=== PATIENT | male | born 1945 | race Caucasian/White ===

== ENCOUNTER → 2017-08-29 15:33 | Outpatient (CLI) | payer MEDICARE, OTHER, SELFPAY ==
[2017-08-29 16:09] LABS: Absolute Lymphocyte Count 1.63 X10^3/ul (0.83-4.51); Absolute Neutrophil Count 3.5 X10^3/uL (2.0-7.7); Basophil# 0.01 X10^3/uL; Basophil% 0.2 % (0-1); Eosinophil# 0.04 X10^3/uL; Eosinophils% 0.7 % (0-5); Hematocrit 43.5 % (40-54); Hemoglobin 14.8 g/dl (13.0-16.5); Lymphocyte # 1.63 X10^3/ul (4.0); Lymphocyte % 28.8 % (19-41); Mean Corpuscular Hgb 32.5 pg (27.0-32.0); Mean Corpuscular Volume 95.4 fL (80-94); Mean Platelet Vol. 9.2 fl (6.2-12.0); Monocyte# 0.51 X10^3/uL; Neutrophil # 3.47 X10^3/uL (2.7-7.7); Neutrophil % 61.3 % (47-70); Platelet Count 151 K/mm3 (150-450); RBC Distribution Width CV 12.2 % (11.6-14.6); RBC Distribution Width SD 42.5 fl (35.1-43.9); Red Blood Count 4.56 M/mm3 (4.6-6.2); White Blood Count 5.7 K/mm3 (4.4-11.0)
[2017-08-29 16:12] LABS: POSITIVE COUNT NO; POSITIVE DIFFERENTIAL NO; POSITIVE MORPHOLOGY NO
[2017-08-29 16:24] LABS: Erythrocyte Sedimentation Rate 13 mm/hr (0-20)
[2017-08-29 16:42] LABS: D-Dimer Quantitative (DVT/PE) 0.62 FEU/ug/m (0.27-0.49)
[2017-08-29 16:57] LABS: ALB/GLOB Ratio 1.2 RATIO (0.9-2.4); AST(SGOT) 26 U/L (15-37); Alanine Aminotransfer ALT/SGPT 36 U/L (16-61); Albumin, Serum 3.7 g/dL (3.2-5.0); Alkaline Phosphatase 97 U/L (45-117); Anion Gap 8 (5-15); BUN 11 mg/dL (7-18); BUN/Creat Ratio 12.6 RATIO (10-20); Calcium,Total 8.9 mg/dL (8.5-10.1); Chloride 101 mmol/L (98-107); Creatinine, Serum 0.87 mg/dL (0.70-1.30); EST Glomerular Filtration Rate 92 mL/min (>60); Est Glom Filt Rate - Afr Amer 111 mL/min (>60); Globulin 3.2 g/dL (2.2-4.2); Glucose 86 mg/dL (74-106); Potassium 4.2 mmol/L (3.5-5.1); Protein, Total 6.9 g/dL (6.4-8.2); Sodium Level 136 mmol/L (136-145)
[2017-09-01 12:56] LABS: EBV Acute VCA IgM < 36.0 U/mL (0.0-35.9); EBV Early Antigen IgG >150.0 U/mL (0.0-8.9)
== END ==
PROVIDERS: Family Provider Internal Medicine; PCP Internal Medicine; Visit Provider Internal Medicine
DX: R53.83 Other fatigue (principal); R07.9 Chest pain, unspecified
CPT/HCPCS: 80053; 84484; 85025; 85379; 85652; 86663; 86664; 86665

== ENCOUNTER → 2017-08-29 15:49 | Outpatient (CLI) | payer MEDICARE, OTHER, SELFPAY ==
--- NOTE | 2017-08-29 15:52 | RAD_ITS ---
STUDY: X-RAY CHEST REASON FOR EXAM: Male, 72 years old. COUGH TECHNIQUE: Frontal and lateral views of the chest. COMPARISON: None. FINDINGS: Chronic appearing increased interstitial lung markings. There is an elevated right hemidiaphragm. The lung vaca are hyperexpanded. There is no demonstrated pleural abnormality. Normal heart size. Normal mediastinum and art. Normal visualized pulmonary arteries. There is atherosclerotic calcification of the aortic arch with tortuosity. There are diffuse degenerative changes of the visualized thoracic spine. There is degenerative osteoarthritis of the bilateral shoulders. There is no demonstrated abnormality of the visualized soft tissue structures of the upper abdomen. RAD/Chest PA and Lateral IMPRESSION: There are no acute findings. Electronically Signed: Kevin Jenkins MD at 16:22 EST , Service support ,
== END ==
PROVIDERS: Family Provider Internal Medicine; PCP Internal Medicine; Visit Provider Internal Medicine
DX: J45.31 Mild persistent asthma with (acute) exacerbation (principal); R53.83 Other fatigue; R07.9 Chest pain, unspecified
CPT/HCPCS: 71046; 80053; 84484; 85025; 85379; 85652; 86663; 86664; 86665

== ENCOUNTER → 2017-08-30 08:37 | Outpatient (CLI) | payer MEDICARE, OTHER, SELFPAY ==
--- NOTE | 2017-08-30 09:07 | CT_ITS ---
STUDY: CTA CHEST REASON FOR EXAM: Male, 72 years old. Elevated d-dimer. RADIATION DOSAGE (If Supplied By Facility): CTDIvol = ( 15.39 ) mGy, DLP = ( 668.35 ) mGycm TECHNIQUE: The examination was performed with the intravenous administration of 100 ml of Isovue 370 contrast material. Post-processing of the angiographic images was performed, with multiplanar reformation and 3D reconstruction. Individualized dose optimization techniques were used for this CT. COMPARISON: CT of the chest dated March 29, 2017. FINDINGS: Normal enhancement of the main pulmonary artery and right and left pulmonary arteries. Normal enhancement of the bilateral peripheral pulmonary arteries. There is no demonstrated pulmonary embolism. There is atherosclerotic calcification of the aortic arch with tortuosity. Maximum transverse dimension of ascending thoracic aorta measures approximately 4.3 cm. This is similar to the previous CT. There is no demonstrated aortic dissection. Normal heart and pericardium. There are calcifications of the coronary arteries. There are visualized mediastinal lymph nodes, which are within normal size limits, and with normal morphology. Normal hilar regions. Normal visualized trachea and bronchi. The lungs are hyper expanded, with flattening of the hemidiaphragms. There is patchy right basilar airspace consolidation, possibly representing pneumonia. A similar appearance was present on the previous CT and this could represent pulmonary fibrosis. There is a nodule left lower lobe best seen on axial image #58 measuring approximately 7.6 mm in size. There curvilinear opacities within the left lower lobe that may represent pulmonary fibrosis. There may be some bronchiectasis in the left lower lobe. There is a calcified right apical pulmonary nodule possibly representing granuloma. There appears to be mild pleural thickening adjacent to the posterior chest gomez. Normal chest wall structures. There are degenerative changes of thoracic spine. There is a small lucency within the dome of the right lobe liver that may represent a small cyst. CT/CTA Chest W/WO Contrast IMPRESSION: 1. No CTA demonstrated pulmonary embolism or arterial dissection. 2. Chronic right basilar opacity possibly presenting pulmonary fibrosis or pleural thickening. 3. Questionable left lower lobe pulmonary nodule and bronchiectasis. 4. Electronically Signed: Carissa Garcia MD at 10:00 EST , Service support ,
== END ==
PROVIDERS: Family Provider Internal Medicine; PCP Internal Medicine; Visit Provider Internal Medicine
DX: R79.89 Other specified abnormal findings of blood chemistry (principal)
CPT/HCPCS: 71275; Q9967

== ENCOUNTER 2017-12-21 16:04 | Observation (INO) | payer MEDICARE, OTHER, SELFPAY ==
--- NOTE | 2017-12-21 13:03 | EKG12_ITS ---
Test Reason : AM EKG Blood Pressure : / mmHG Vent. Rate : 053 BPM Atrial Rate : 053 BPM P-R Int : 184 ms QRS Dur : 088 ms QT Int : 438 ms P-R-T Axes : 042 012 035 degrees QTc Int : 410 ms Sinus bradycardia Otherwise normal ECG Confirmed by HARMAN CARTAGENA, DANITA ([id number]), photographic editor NOREEN MEDINA ([id number] on 12/27/2017 1:48:16 PM Referred By: Confirmed By:DANITA HAMMER MD
--- NOTE | 2017-12-21 15:19 | EKG12_ITS ---
Test Reason : CP Blood Pressure : / mmHG Vent. Rate : 069 BPM Atrial Rate : 069 BPM P-R Int : 162 ms QRS Dur : 088 ms QT Int : 378 ms P-R-T Axes : 049 -14 033 degrees QTc Int : 405 ms Normal sinus rhythm Normal ECG When compared with ECG of 21-MAY-2011 09:48, No significant change was found Confirmed by NATHALIA VACA ([id number]), design editor JENNIFER PETTY ([id number] on 01/06/2018 2:59:15 PM Referred By: ISAI Confirmed By:NATHALIA VACA
--- NOTE | 2017-12-21 15:49 | RAD_ITS ---
STUDY: X-RAY CHEST REASON FOR EXAM: Male, 72 years old. Chest pain TECHNIQUE: PA and lateral views of the chest. COMPARISON: None. FINDINGS: The lungs are clear and expanded. There is no demonstrated pleural abnormality. There is mild cardiac enlargement. Normal mediastinum and art. Normal visualized pulmonary arteries. Normal visualized aortic arch and descending thoracic aorta. There are diffuse degenerative changes of the visualized thoracic spine. There is degenerative osteoarthritis of the bilateral shoulders. There is no demonstrated abnormality of the visualized soft tissue structures of the upper abdomen. RAD/Chest PA and Lateral IMPRESSION: No acute cardiopulmonary disease Electronically Signed: Pranav Gibbons DO at 16:00 EDT Tel , Service support ,
--- NOTE | 2017-12-21 17:28 | DT_ITS ---
This patient was seen during an EMR downtime December 16, 2017 - December 23, 2017. This patient may have a combination of paper and electronic documentation or all paper documentation. All documentation is viewable within the e-chart portion of [facility] for each patient visit.
--- NOTE | 2017-12-21 18:46 | EKG12_ITS ---
Test Reason : ADMIT Blood Pressure : / mmHG Vent. Rate : 040 BPM Atrial Rate : 040 BPM P-R Int : 166 ms QRS Dur : 098 ms QT Int : 444 ms P-R-T Axes : 029 -18 013 degrees QTc Int : 361 ms Marked sinus bradycardia Abnormal ECG Confirmed by HARMAN CARTAGENA, DANITA ([id number]), deputy editor in chief NOREEN MEDINA ([id number] on 12/27/2017 2:57:46 PM Referred By: Confirmed By:DANITA HAMMER MD
[2017-12-24 20:31] LABS: BUN 13 mg/dL (7-18); BUN/Creat Ratio 11.9 RATIO (10-20); Calcium,Total 8.8 mg/dL (8.5-10.1); Creatinine, Serum 1.09 mg/dL (0.70-1.30); EST Glomerular Filtration Rate 71 mL/min (>60); Est Glom Filt Rate - Afr Amer 86 mL/min (>60); Glucose 105 mg/dL (74-106)
[2017-12-24 20:32] LABS: Anion Gap 8 (5-15); Chloride 105 mmol/L (98-107); Potassium 4.2 mmol/L (3.5-5.1); Sodium Level 141 mmol/L (136-145)
[2017-12-24 21:00] LABS: Absolute Lymphocyte Count 1.46 X10^3/ul (0.83-4.51); Absolute Neutrophil Count 3.7 X10^3/uL (2.0-7.7); Basophil% 0.3 % (0-1); Eosinophils% 2.3 % (0-5); Hematocrit 46.1 % (40-54); Hemoglobin 15.9 g/dl (13.0-16.5); Lymphocyte # 1.46 X10^3/ul (4.0); Lymphocyte % 25.4 % (19-41); Mean Corp Hgb Conc 34.5 g/gl (32-36); Mean Corpuscular Hgb 33.1 pg (27.0-32.0); Mean Corpuscular Volume 95.8 fL (80-94); Mean Platelet Vol. 9.2 fl (6.2-12.0); Monocyte# 0.39 X10^3/uL; Monocyte% 6.8 % (0-10); Neutrophil # 3.74 X10^3/uL (2.7-7.7); Neutrophil % 65.2 % (47-70); POSITIVE COUNT NO; POSITIVE DIFFERENTIAL NO; POSITIVE MORPHOLOGY NO; Platelet Count 186 K/mm3 (150-450); RBC Distribution Width CV 12.4 % (11.6-14.6); RBC Distribution Width SD 43.4 fl (35.1-43.9); Red Blood Count 4.81 M/mm3 (4.6-6.2); White Blood Count 5.7 K/mm3 (4.4-11.0)
[2017-12-24 21:01] LABS: Basophil# 0.02 X10^3/uL; Eosinophil# 0.13 X10^3/uL
== END 2017-12-22 09:50 | disposition home or self-care (01) ==
LOC: ED 12-22 09:52 → PCU 12-22 09:53
PROVIDERS: Admitting Provider Internal Medicine; Emergency Provider Emergency Medicine; Family Provider Internal Medicine; PCP Internal Medicine; Visit Provider Internal Medicine
DX: R07.89 Other chest pain (principal); I10 Essential (primary) hypertension; E78.5 Hyperlipidemia, unspecified; J45.909 Unspecified asthma, uncomplicated; G47.33 Obstructive sleep apnea (adult) (pediatric); R00.1 Bradycardia, unspecified
CPT/HCPCS: 71046; 80048; 84484; 85025; 93005; 99218; 99284; A4216; G0378

== ENCOUNTER → 2017-12-30 12:41 | Outpatient (CLI) | payer MEDICARE, OTHER, SELFPAY ==
[2017-12-30 13:27] LABS: D-Dimer Quantitative (DVT/PE) 0.64 FEU/ug/m (0.27-0.49)
== END ==
PROVIDERS: Family Provider Internal Medicine; PCP Internal Medicine; Visit Provider Internal Medicine
DX: R07.89 Other chest pain (principal)
CPT/HCPCS: 85379

== ENCOUNTER → 2017-12-30 13:55 | Outpatient (CLI) | payer MEDICARE, OTHER, SELFPAY ==
--- NOTE | 2017-12-30 14:14 | CT_ITS ---
STUDY: CTA CHEST REASON FOR EXAM: Male, 72 years old. Elevated d-dimer. Chest pain and shortness of breath. History of recent travel. RADIATION DOSAGE (If Supplied By Facility): CTDIvol = ( 12.60 ) mGy, DLP = ( 553.24 ) mGycm TECHNIQUE: The examination was performed with the intravenous administration of 100mL ml of Isovue 370 contrast material. Post-processing of the angiographic images was performed, with multiplanar reformation and 3D reconstruction. Individualized dose optimization techniques were used for this CT. COMPARISON: Comparison is made with prior study dated August 30, 2017. FINDINGS: Normal enhancement of the main pulmonary artery and right and left pulmonary arteries. Normal enhancement of the bilateral peripheral pulmonary arteries. There is no demonstrated pulmonary embolism. Normal thoracic aorta and visualized great vessels. There is no demonstrated aortic dissection. Normal heart and pericardium. Normal mediastinum. Normal hilar regions. Normal visualized trachea and bronchi. The lungs are well expanded. Mild increased markings at the lung bases suggestive of atelectasis. Scattered calcified granulomas. Normal pleura. Normal chest wall structures. There are degenerative changes of thoracic spine. Normal visualized upper abdomen. CT/CTA Chest W/WO Contrast IMPRESSION: No evidence of pulmonary embolism. Increased markings at the lung bases suggest cerebral atelectasis. There has been essentially no change. Electronically Signed: Castillo Coleman MD at 15:36 EDT Tel [phone], Service support ,
== END ==
PROVIDERS: Family Provider Internal Medicine; PCP Internal Medicine; Visit Provider Internal Medicine
DX: R79.89 Other specified abnormal findings of blood chemistry (principal); R07.89 Other chest pain
CPT/HCPCS: 71275; 85379; Q9967

== ENCOUNTER 2018-02-10 11:00 | Outpatient (RCR) | payer MEDICARE, OTHER, SELFPAY ==
--- NOTE | 2018-01-22 15:46 | HP.PTEVAL_ITS ---
Patient's Visit Information LILLIE JEWELL Jr. is a 72 year old M referred to Physical Therapy by Brooks Moore with a diagnosis of Left Achilles Tendonitis. Date of Evaluation: 01/22/18 Physical Therapist: Nery Fisher - Visit Plan Frequency: 2x /Week Duration: 4 Weeks Plan: Focus on stretching and eccentric strength- modality of US and DN - Subjective Subjective: Left achilles tendon has been bothering him for a couple of months- saw MD who sent him to to Dr. Moore- who told him it was prob fraying or tendonitis. Has been using voltaran gel and a night splint. He really enjoys walking with his in the evening- has tried ice and nothing seems to be helping. When he wakes in the AM his first few steps its pretty miserable and then it gets better as the day goes on. Worst: 4/10 feels obnixious- sharp/ shooting or stabbing depending on it. Agg: first thing in the AM, and being up/ down the stairs Eases: stretching and Voltaran gel. Pain is located into the achilles with no radiating pain. No N/T or burning. Gets stiff when he sits for longer periods of time. Sleep: not disturbed- back sleeper. CPAP for about a year and a half. Does not wear orthotics normally but does wear heel lifts in both shoes. Patient is normally in tennis shoes- and wears dress shoes 3-4 x a month for meetings. Patient reports that he is very active but wants to get back to walking more with his . Normally walks on the sidwalk/ roadway- varys different sides of the road/sidewalk. Has had backpain after he painted his house and has had issues on/off since then. Does his back exercises and they keep them at bay. Dr. Moore did 3 x-rays but did not do an MRI. PMHx:htn Meds: asprin, blood pressure med, cholesterol, spirona. 80s tore/repair the right achillles - Objective Posture: FH, RS. Gait: antalgic- decreased stance bilateral with right toes turned outwards- decreased heel/toe pattern. HR/TR: able with weight shift to the left. SLS: 2 sec then LOB and righted with UE A. Palpation: tender along achilles tendon with increased bump'. ROM: DF: neutral, pf: 60 degrees, Inv: 40 degrees, Ever: 30 degrees. Strength: 5/5 throughout. Flex: Gastroc: severe. Soleus: mild, HS: severe - Goals Goal 1:: Patinet will be I with HEP and progression Goal Time Frame: 4-6 Weeks Goal 2:: Patient will demo 5 degrees of DF Goal Time Frame: 4-6 Weeks Goal 3:: Patient will report 0/10 pain for 1 week Goal Time Frame: 4-6 Weeks Goal 4:: Patient will ambulate without pain Goal Time Frame: 4-6 Weeks - Rehabilitation Potential Physical Therapy Diagnosis: Patient presents with hypmobility- he has decreased rom and flex leading increased pain with ADL's. Rehabilitation Potential: Fair - Anticipated Interventions Patient/Client Instruction: Educate patient on: Benefits of Fitness Program For the Purpose of:: To improve ability to perform ADL's Therapeutic Exercise to Include: Strength training, Endurance training, Balance training, Agility training, Body mechanics, Postural training, Flexibilty training, Gait and locomotor training, Passive ROM, Active ROM For the Purpose of:: To improve muscle performance and motor function Manual Therapy Techniques to Include: Mobilization, Functional dry needling, Soft tissue mobilization For the Purpose of:: To increase oxygenation perfusion TENS: Yes Cryotherapy (ice pack, ice massage): Yes Thermo therapy (hot pack): Yes Ultrasound (thermal/non thermal): Yes For the Purpose of:: To decrease pain Thank you for the opportunity to evaluate your patient. For Medicare and Medicare HMO plans, please review the plan of care and approve it. It will need to be FAXED BACK to us at [phone] for Medicare purposes. Please let me know if there are questions or concerns regarding this plan of care. Physician Signature: Date:
--- NOTE | 2018-02-10 11:21 | HP.PTDCSUM ---
HP - PT D/C Summary It has been my pleasure to treat LILLIE JEWELL . under orders from Brooks Moore, for the diagnosis of Left Achilles Tendonitis for a total of 8 visit(s). Discharge Date: Please see the following information for a summary of their discharge status. - Subjective Subjective: Patient reports he was feeling great- no pain until last week and [employer] used a international controller on him and he has taken out a heel lift per Dr. Moore and now he is having more pain. He is doing the exercises at home stretching but feels like the calf is almost cramping. - Pain left achilles Pain Intensity (Out of 10): 0 - Overall Improvement % Improvement: 90 - Objective Objective/Function: Posture: FH, RS. Gait: antalgic- decreased stance bilateral with right toes turned outwards- decreased heel/toe pattern. HR/TR: able with weight shift to the left. SLS: 20 sec. Palpation: tender along achilles tendon with increased bump'. ROM: DF: 10, pf: 60 degrees, Inv: 40 degrees, Ever: 30 degrees. Strength: 5/5 throughout. Flex: Gastroc: od. Soleus: mild, HS: mod - Goals Goal 1:: Patinet will be I with HEP and progression Goal Progress: Goal Met Goal 2:: Patient will demo 5 degrees of DF Goal Progress: Goal Met Goal 3:: Patient will report 0/10 pain for 1 week Goal Progress: Progressing Goal 4:: Patient will ambulate without pain Goal Progress: Progressing - Plan Plan: Discharge to I HEP - D/C Information If there are questions or concerns regarding this patient's physical therapy, please feel free to call me at [phone]. Thank you for the referral of this patient. Sincerely, Nery Fisher
== END 2018-02-10 19:00 | disposition home or self-care (01) ==
LOC: PT 11:00
PROVIDERS: Family Provider Internal Medicine; PCP Internal Medicine; Visit Provider Podiatrist
DX: M76.62 Achilles tendinitis, left leg (principal)
CPT/HCPCS: 97035; 97110; 97161; 97164

== ENCOUNTER → 2018-02-27 12:43 | Outpatient (CLI) | payer MEDICARE, OTHER, SELFPAY | PROVIDERS: Family Provider Internal Medicine; PCP Internal Medicine; Visit Provider Internal Medicine Pulmonary Disease | DX: R91.1 Solitary pulmonary nodule (principal) | CPT/HCPCS: 71250 ==

== ENCOUNTER → 2018-05-22 06:59 | Outpatient (CLI) | payer MEDICARE, OTHER, SELFPAY ==
--- NOTE | 2018-05-22 07:02 | ECHOD_ITS ---
Reason For Study: CHEST PAIN Procedure This was a 2D Doppler, Color Flow transthoracic echocardiogram. The exam was of adequate technical quality. Exam performed in department. Left Ventricle Normal LV size. Left ventricular systolic function is normal. The estimated ejection fraction is 60 %. The global longitudinal strain = -20 % (normal). No regional wall motion abnormalities noted. Right Ventricle Normal RV size. Normal systolic function. Atria Normal left atrium. Normal right atrium. No doppler evidence for ASD. Bubble contrast study negative for right to left interatrial shunt. Mitral Valve There is no mitral annular calcification. Mild mitral valve prolapse. Mild (1+) mitral valve insufficiency. Tricuspid Valve Normal tricuspid valve. Mild tricuspid valve insufficiency. Right ventricular systolic pressure estimated to be 27 mmHg. Aortic Valve Trisinus/trileaflet aortic valve. Mild diffuse aortic valve thickening. Pulmonic Valve The pulmonic valve is not well visualized. Mild (1+) pulmonic valve insufficiency. Great Vessels Borderline enlarged aortic root. Pericardium/Pleural No pericardial effusion. Medication Performed a rapid injection of agitated mix of 9 cc saline and 1cc air to assess for atrial septal defect. MMode/2D Measurements & Calculations LVIDd: 5.4 cm IVSd: 1.2 cm Ao root diam: 3.8 cm LVIDs: 3.4 cm LVPWd: 1.0 cm FS: 36.5 % LAV(MOD-bp): 66.7 ml LA A4 area: 18.1 cm2 LA dimension(2D): 4.1 cm LAV(MOD-bp) Indexed: 32.0 ml/m2 LAV(MOD-sp2): 74.7 ml LAV(MOD-sp4): 52.6 ml RA A4 area: 18.3 cm2 Time Measurements MV dec time: 0.24 sec Doppler Measurements & Calculations MV E max renny: 71.0 cm/sec Lat Peak E' Renny: 6.9 cm/sec Med Peak E' Renny: 6.5 cm/sec MV A max renny: 62.4 cm/sec E/E' lat: 10.3 E/E' med: 10.9 MV E/A: 1.1 Ao V2 max: 130.6 cm/sec LV V1 max: 86.4 cm/sec PA V2 max: 92.7 cm/sec Ao max P.8 mmHg LV V1 max P.0 mmHg PI end-d renny: 111.2 cm/sec TR max renny: 245.8 cm/sec PI dec slope: 134.8 cm/sec2 TR max P.2 mmHg Interpretation Summary Left ventricular systolic function is normal. The estimated ejection fraction is 60 %. The global longitudinal strain = -20 % (normal). Mild mitral valve prolapse. Mild (1+) mitral valve insufficiency. Mild tricuspid valve insufficiency. Mild diffuse aortic valve thickening. Mild (1+) pulmonic valve insufficiency. Borderline enlarged aortic root. Right ventricular systolic pressure estimated to be 27 mmHg. Transmitral diastolic flow velocities suggest diastolic dysfunction (pseudonormal pattern). Bubble contrast study negative for right to left interatrial shunt. Ordering Physician: Carlos Anderson Referring Physician: Love Valencia Performed By: Funmilayo Bess, ESE, RVT
--- NOTE | 2018-05-22 10:03 | STRESSREP ---
Stress Test Report Date: 05/22/2018 Procedure: Exercise tolerance test/imaging study Indications: Chest pain Consent: Per the patient Procedure: The patient exercised on a Joseluis protocol for 11 minutes completing Stage III and 2 minutes of Stage IV achieving a peak heart rate of 141 bpm (94 % predicted maximal heart rate) with a peak blood pressure 172/94 mmHg and a peak MET capacity of 13 METs. The baseline ECG demonstrated on his bradycardia. The peak exercise ECG demonstrated somatic/motion artifact with no obvious ECG changes. There was an occasional PAC during exercise. The functional capacity was considered good. There was [no complaint of chest discomfort during exercise or recovery]. The examination was discontinued secondary to dyspnea. Impression: 1. Technically adequate (percent predicted maximal heart rate greater than 85%) exercise tolerance test 2. Peak exercise ECG with somatic/motion artifact with no obvious ECG changes 3. Was an occasional PVC during exercise 4. Nuclear images pending Myocardial perfusion imaging study: Technique: The patient was injected with 11.8 mCi of technetium 99m Cardiolite and subsequently rest SPECT Cardiolite nuclear imaging was obtained in the horizontal long, vertical long, and short axis views. The patient exercised on a Joseluis protocol for 11 minutes completing Stage III and 2 minutes of Stage IV achieving a peak heart rate of 141 bpm (94 % predicted maximal heart rate) with a peak blood pressure 172/94 mmHg and a peak MET capacity of 13 METs. The patient was injected with 33.1 mCi of technetium 99m Cardiolite and subsequently stress SPECT Cardiolite nuclear imaging was obtained in the horizontal long, vertical long, and short axis views. A gated Cardiolite study at peak stress was obtained. Interpretation: Rest and stress SPECT Cardiolite nuclear imaging status post realignment, normalization, and attenuation correction, demonstrates [the appearance of relative uniform tracer uptake and myocardial perfusion appearing within normal limits]. [There is end systolic thickening and brightening]. The gated Cardiolite study demonstrates [myocardial thickening and inward wall motion]. The reported LVEF is 60 %. Impression: 1. Rest and stress SPECT Cardiolite nuclear imaging demonstrate [relative uniform tracer uptake and myocardial perfusion appearing within normal limits]. 2. The gated Cardiolite study reports an LVEF of 60 o%. This note was generated with [employer] software. It may contain incorrect words, spelling, and punctuation that were not noted in checking the note before signing.
--- NOTE | 2018-05-22 10:07 | STRESSREP_ITS ---
Stress Test Report Date: 05/22/2018 Procedure: Exercise tolerance test/imaging study Indications: Chest pain Consent: Per the patient Procedure: The patient exercised on a Joseluis protocol for 11 minutes completing Stage III and 2 minutes of Stage IV achieving a peak heart rate of 141 bpm (94 % predicted maximal heart rate) with a peak blood pressure 172/94 mmHg and a peak MET capacity of 13 METs. The baseline ECG demonstrated on his bradycardia. The peak exercise ECG demonstrated somatic/motion artifact with no obvious ECG changes. There was an occasional PAC during exercise. The functional capacity was considered good. There was [no complaint of chest discomfort during exercise or recovery]. The examination was discontinued secondary to dyspnea. Impression: 1. Technically adequate (percent predicted maximal heart rate greater than 85%) exercise tolerance test 2. Peak exercise ECG with somatic/motion artifact with no obvious ECG changes 3. Was an occasional PVC during exercise 4. Nuclear images pending Myocardial perfusion imaging study: Technique: The patient was injected with 11.8 mCi of technetium 99m Cardiolite and sub sequently rest SPECT Cardiolite nuclear imaging was obtained in the horizontal long, vertical long, and short axis views. The patient exercised on a Joseluis protocol for 11 minutes completing Stage III and 2 minutes of Stage IV achieving a peak heart rate of 141 bpm (94 % predicted maximal heart rate) with a peak blood pressure 172/94 mmHg and a peak MET capacity of 13 METs. The patient was injected with 33.1 mCi of technetium 99m Cardiolite and subsequently stress SPECT Cardiolite nuclear imaging was obtained in the horizontal long, vertical long, and short axis views. A gated Cardiolite study at peak stress was obtained. Interpretation: Rest and stress SPECT Cardiolite nuclear imaging status post realignment, normalization, and attenuation correction, demonstrates [the appearance of rel ative uniform tracer uptake and myocardial perfusion appearing within normal limits]. [There is end systolic thickening and brightening]. The gated Cardiolite study demonstrates [myocardial thickening and inward wall motion]. The reported LVEF is 60 %. Impression: 1. Rest and stress SPECT Cardiolite nuclear imaging demonstrate [relative uniform tracer uptake and myocardial perfusion appearing within normal limits]. 2. The gated Cardiolite study reports an LVEF of 60 o%. This note was generated with [employer] software. It may contain incorrect words, spelling, and punctuation that were not noted in checking the note before signing.
== END ==
PROVIDERS: Family Provider Internal Medicine; PCP Internal Medicine; Referring Provider Internal Medicine Cardiovascular Disease; Visit Provider Internal Medicine Cardiovascular Disease
DX: I25.10 Atherosclerotic heart disease of native coronary artery without angina pectoris (principal); I71.2 Thoracic aortic aneurysm, without rupture; R07.9 Chest pain, unspecified; R06.09 Other forms of dyspnea
CPT/HCPCS: 78452; 93017; 93306; A9500; A4216

== ENCOUNTER → 2018-11-26 | Outpatient (CLI) | payer MEDICARE, OTHER, SELFPAY | END | disposition home or self-care (01) | LOC: PSN 09:01 | PROVIDERS: Family Provider Internal Medicine; PCP Internal Medicine; Referring Provider Internal Medicine; Visit Provider Internal Medicine | DX: R00.1 Bradycardia, unspecified (principal) | CPT/HCPCS: 93225; 93226 ==

== ENCOUNTER → 2018-12-22 | Outpatient (CLI) | payer SELFPAY ==
[2018-04-30 13:08] VITALS: BMI 30.2
--- NOTE | 2018-12-22 14:39 | CT_ITS ---
STUDY: CARDIAC CALCIUM SCORING - CT CHEST REASON FOR EXAM: Male, 73 years old. Hyperlipidemia calcium score evaluation RADIATION DOSAGE (If Supplied By Facility): CTDIvol = ( 12.19 ) mGy, DLP = ( 243.79 ) mGycm TECHNIQUE: Axial non-enhanced images were acquired through the heart for the sole purpose of measuring coronary artery calcium. Individualized dose optimization techniques were used for this CT. COMPARISON: [address] chest FINDINGS: Visualized surrounding anatomy: There is minor atelectasis. Visualized airways are patent. There is no pulmonary edema or pleural effusions. Cardiac chambers are normal in size and shape. There is a linear focus of fat in the subendocardium of the basal lateral left ventricular wall. There is an elongated intracavitary near apical focus of fat in the right ventricle, possibly within trabeculation. There are minor aortic valve calcifications. Calcium Score: 880 CT/Limited Chest CT w/CCTA IMPRESSION: 1. Calcium Score of 880, 75th percentile, moderately elevated future risk of adverse cardiovascular events estimated at greater than 15% over the next 10 years. 2. Left ventricular lateral wall lipoid metaplasia, presumably remote subendocardial infarct. Cardiology referral advised. Please go to: [email or web address] , for a description of the calculator. Electronically Signed: Eduardo Aguirre, at 16:47 EDT Tel , Service support ,
[2018-12-22 15:15] VITALS: BP 133/72; PULSE 56; RESP 16; O2SAT 96; BMI 28.8
--- NOTE | 2018-12-22 18:53 | CA.SCORE ---
Calcium Scoring Date of Study:: 12/22/18 Coronary Calcium Scoring: High-resolution Computed Tomographic imaging of the chest was performed on [12/22/2018], with particular attention paid to the coronary arteries. Images from the examination were analyzed for the presence and extent of coronary artery calcification , using coronary calcium quantification software. The patient tolerated the procedure well and there were no complications. The results of the coronary calcification analysis are provided below. - Findings Left Main (LM): 165 Left Anterior Descending (LAD): 513 Left Circumflex (LCX): 0 Right Coronary Artery (RCA): 202 Total Agatston Score: 880 Percentile Rankin - Conclusion Calcium Scoring Interpretation: Calcium Score Interpretation 0 No identifiable atherosclerotic plaque. Very low cardiovascular disease risk. <5% chance of presence coronary artery disease A Negative Examination 1-10 Minimal Plaque burden. Significant coronary artery disease very unlikely. 11-100 Mild plaque burden. Likely mild or minimal coronary atherosclerosis. 101-400 Moderate plaque burden Moderate non-obstructive coronary artery disease highly likely. Over 400 Extensive plaque burden. High likelihood of at least one significant coronary stenosis (>50% diameter) Calcium Score: >400 High likelihood of at least one significant coronary stenosis - The above suggests a high likelihood that one coronary artery has at least 50% stenosis in diameter. A full evaluation of cardiac risk should include assessment of all conventional risk factors.
== END | disposition home or self-care (01) ==
PROVIDERS: Family Provider Internal Medicine; PCP Internal Medicine; Referring Provider Internal Medicine; Visit Provider Internal Medicine
DX: E78.5 Hyperlipidemia, unspecified (principal)
CPT/HCPCS: 75571; 76380

== ENCOUNTER → 2019-02-17 | Outpatient (CLI) | payer MEDICARE, OTHER, SELFPAY ==
[2019-02-12 13:38] VITALS: BMI 29.2
--- NOTE | 2019-02-17 13:29 | STRESSREP ---
Stress Test Report Date: 02-17-19 Procedure: Exercise tolerance test Indications: Abnormal coronary calcium score; CAD Consent: Per the patient Procedure: The patient exercised on a Joseluis protocol for 10 minutes and 30 seconds completing Stage III and 1 minute and 30 seconds of Stage IV achieving a peak heart rate of 148 bpm (99 % predicted maximal heart rate) with a peak blood pressure 164/70 mmHg and a peak MET capacity of approximately 12 MET's. The baseline ECG demonstrated sinus bradycardia. The peak exercise ECG demonstrated somatic/motion artifact with no obvious ECG changes. There was a rare PVC during exercise and recovery and an isolated ventricular couplet during recovery. The functional capacity was considered good. The patient had no complaint of chest discomfort during exercise or recovery. The examination was discontinued secondary to dyspnea. Impression: 1. Technically adequate (percent predicted maximal heart rate greater than 85%) exercise tolerance test 2. Peak exercise ECG with somatic/motion artifact with no obvious ECG changes 3. There was a rare PVC during exercise and recovery and an isolated ventricular couplet during recovery 4. Good functional capacity This note was generated with [employer] software. It may contain incorrect words, spelling, and punctuation that were not noted in checking the note before signing.
== END | disposition home or self-care (01) ==
LOC: CVS 11:35
PROVIDERS: Family Provider Internal Medicine; PCP Internal Medicine; Referring Provider Internal Medicine Cardiovascular Disease; Visit Provider Internal Medicine Cardiovascular Disease
DX: I25.10 Atherosclerotic heart disease of native coronary artery without angina pectoris (principal); R93.1 Abnormal findings on diagnostic imaging of heart and coronary circulation
CPT/HCPCS: 93017

== ENCOUNTER → 2019-05-11 12:45 | Outpatient (CLI) | payer MEDICARE, OTHER, SELFPAY ==
[2019-02-12 13:38] VITALS: BMI 29.2
--- NOTE | 2019-05-11 12:47 | CT_ITS ---
STUDY: CT CHEST WITHOUT CONTRAST REASON FOR EXAM: Male, 74 years old. Evaluate lung nodule. RADIATION DOSAGE (If Supplied By Facility): CTDIvol = ( 14.34 ) mGy, DLP = ( 516.06 ) mGycm TECHNIQUE: Transaxial imaging was performed without the administration of intravenous contrast material. Multiplanar coronal and sagittal images were reformatted. Individualized dose optimization techniques were used for this CT. COMPARISON: 02/27/2018. FINDINGS: There is mild bilateral lower lobe subpleural atelectasis. There is a small calcified granuloma within the right lung apex/upper lobe, image 16, axial plane and measuring 0.5 cm. This is stable in the interval. There is a small calcified nodule on image 23, axial plane measuring 2 mm a and stable. A second small calcified nodule seen within the anterior aspect of the left upper lobe at the apex measuring 2.5 mm, stable. There is a small noncalcified nodule within the right middle lobe, image 58 measuring 4.6 mm, stable. Small nodule within the right lower lobe, axial image 60 and measuring 3.5 mm, stable in the interval. Adjacent nodule, stable in the interval and seen on image 61 and measuring 2 mm. No other nodules are identified. There is no demonstrated pleural abnormality. Heart maintains normal size with coronary artery calcifications. There are several lymph nodes within the mediastinum with fatty hilum in largest seen in the paratracheal region measuring 1.1 x 0.8 cm. No distinct lymphadenopathy. Normal hilar regions. Normal unenhanced pulmonary arteries. There is atherosclerotic calcification of the aortic arch with tortuosity and elongation of the aortic arch and descending thoracic aorta. There are multi-level degenerative changes of the thoracic spine. Upper abdomen: There is a small exophytic right upper renal pole low attenuation structure measuring 0.9 cm, stable since 2017 and most compatible with cyst. Remainder of the upper abdominal viscera are unremarkable.. CT/Chest without Contrast IMPRESSION: Stable calcified and noncalcified nodules since previous exam March 29, 2017 noted within the bilateral lung vaca and therefore most compatible with benign processes. Given stability for 2 years, no further follow-up recommended. No acute cardiopulmonary process seen. Electronically Signed: Amber Raymundo MD at 3:56 EDT , Service support ,
== END ==
PROVIDERS: Family Provider Internal Medicine; PCP Internal Medicine; Referring Provider Internal Medicine Pulmonary Disease; Visit Provider Internal Medicine Pulmonary Disease
DX: R91.1 Solitary pulmonary nodule (principal)
CPT/HCPCS: 71250

== ENCOUNTER → 2019-07-24 12:14 | Outpatient (CLI) | payer MEDICARE, OTHER, SELFPAY ==
[2019-02-12 13:38] VITALS: BMI 29.2
--- NOTE | 2019-07-24 12:16 | RAD_ITS ---
STUDY: X-RAY CHEST REASON FOR EXAM: Male, 74 years old. COUGH TECHNIQUE: PA and lateral views of the chest. COMPARISON: Comparison is made with prior study dated December 22, 2007. FINDINGS: The lungs are clear and expanded. Scattered calcified granulomas. There is no demonstrated pleural abnormality. Normal size heart. Normal mediastinum and art. Normal visualized pulmonary arteries. There is atherosclerotic tortuosity of the aortic arch and descending thoracic aorta. There are diffuse degenerative changes of the visualized thoracic spine. Mild dextroscoliosis. Normal visualized ribs, clavicles, and shoulders. There is no demonstrated abnormality of the visualized soft tissue structures of the upper abdomen. RAD/Chest PA and Lateral IMPRESSION: No acute abnormality is seen. Electronically Signed: Castillo Coleman, at 12:52 EST , Service support ,
== END ==
PROVIDERS: Family Provider Internal Medicine; PCP Internal Medicine; Referring Provider Internal Medicine; Visit Provider Internal Medicine
DX: J18.9 Pneumonia, unspecified organism (principal)
CPT/HCPCS: 71046

== ENCOUNTER → 2019-07-28 16:39 | Outpatient (CLI) | payer MEDICARE, OTHER, SELFPAY ==
[2019-02-12 13:38] VITALS: BMI 29.2
--- NOTE | 2019-07-28 16:41 | CT_ITS ---
STUDY: CT ABDOMEN AND PELVIS WITH CONTRAST REASON FOR EXAM: Male, 74 years old. Right lower quadrant pain RADIATION DOSAGE (If Supplied By Facility): CTDIvol = ( 26.28 ) mGy, DLP = ( 994.61 ) mGycm TECHNIQUE: CT images were obtained from the dome of the diaphragm to the symphysis pubis without oral contrast. Oral and amp; IV Readi-CAT and amp; 100mL Isovue-300 was administered. Sagittal and coronal images were reconstructed. Individualized dose optimization techniques were used for this CT. COMPARISON: None. FINDINGS: There is mild basilar atelectasis. There are no pleural effusions.. The visualized portions of the heart are within normal limits. Normal liver. Normal gallbladder and extrahepatic biliary system. Normal spleen. Normal pancreas. Normal bilateral adrenal glands. There is a 1 cm right renal exophytic lesion, incompletely characterized due to single phase of the examination. There are no urinary calculi or hydronephrosis. Gastrointestinal tract assessment is limited due to lack of cleansing, therapeutic distention and presence of obscuring hyperdense material. Some diagnostic information is available. Intestinal wall and contents cannot be assessed. There is no intestinal obstruction. There is extensive colonic diverticulosis predominantly affecting the sigmoid. Appendix is normal. There is no abigail-enteric inflammatory change. Normal abdominal aorta. Normal inferior vena cava. Normal retroperitoneum. Normal urinary bladder. Normal abdominal wall. Significant degenerative changes in the lumbar spine with multilevel thecal sac stenosis. Refer to dedicated lumbar spinal imaging for assessment. CT/Abdomen/Pelvis WITH Contrast IMPRESSION: 1. Moderately limited evaluation of the gastrointestinal tract. 2. No intestinal obstruction. 3. No appendicitis. 4. Sigmoid diverticulosis. 5. Recommend repeating the examination after therapeutic bowel evacuation and after passage of obscuring hyperdense material. 6. 1 cm right renal exophytic lesion, too small to reliably characterize, refer to ultrasonography for further assessment. Electronically Signed: Eduardo Aguirre, at 17:47 EST Tel , Service support ,
[2019-07-28 16:50] LABS: CREATININE FINGERSTICK 1.2 mg/dL (0.70-1.30)
== END ==
PROVIDERS: Family Provider Internal Medicine; PCP Internal Medicine; Referring Provider Internal Medicine; Visit Provider Internal Medicine
DX: R10.31 Right lower quadrant pain (principal)
CPT/HCPCS: 74177; Q9967

== ENCOUNTER → 2019-08-06 09:36 | Outpatient (CLI) | payer MEDICARE, OTHER, SELFPAY ==
[2019-02-12 13:38] VITALS: BMI 29.2
--- NOTE | 2019-08-06 09:39 | US_ITS ---
STUDY: ABDOMINAL ULTRASOUND - RIGHT UPPER QUADRANT REASON FOR VISIT: Male, 74 years old RENAL CYST ON CT TECHNIQUE: Ultrasound evaluation of the right upper quadrant was performed with real-time and static adrian-scale imaging. TECHNICAL QUALITY: Limited. Examination limited by bowel gas. COMPARISON: Comparison is made with prior CT scan of the abdomen and pelvis dated July 28, 2019. FINDINGS: Liver: The liver measures 14.1 cm. There is increased echogenicity consistent with mild degree of fatty infiltration. The bile ducts are within normal limits. There is hepatic color flow. The direction of portal flow is hepatopetal. There is no demonstrated mass lesion. Gallbladder: Normal distended gallbladder. The gallbladder wall measures 1.6 mm. There is a negative sonographic Harvey''s sign. There is no pericholecystic fluid. There are no gallstones. Common Bile Duct (C.B.D.): The common bile duct measures 6.2 mm. Pancreas: Normal size of the head, body and tail of the pancreas. There is normal echogenicity of the pancreas. There is no demonstrated pancreatic mass or cyst. Right Kidney: Normal size of the right kidney. The right kidney measures 10.6 cm x 6.3 cm x 4.9 cm. Normal renal cortex. The right cortex measures 1.2 cm. There is a 1.1 cm x 1 cm x 0.9 cm cyst with septation along the lateral aspect of the kidney. There is no right hydronephrosis. US/Abdomen Limited IMPRESSION: Mild degree of fatty infiltration of the liver. Findings suggestive of a 1.1 cm cyst in the upper pole of the right kidney with a septation. Electronically Signed: Castillo Coleman, at 14:16 EST , Service support ,
== END ==
PROVIDERS: PCP Internal Medicine; Referring Provider Internal Medicine; Visit Provider Internal Medicine
DX: R93.5 Abnormal findings on diagnostic imaging of other abdominal regions, including retroperitoneum (principal)
CPT/HCPCS: 76705

== ENCOUNTER 2019-11-22 17:38 | Emergency (ER) | payer MEDICARE, OTHER, SELFPAY ==
[2019-09-02 13:40] VITALS: BMI 29.5
[2019-11-22 17:40] VITALS: BP 161/82; PULSE 61; RESP 16; TEMP 36.6; O2SAT 97; BMI 30.5
--- NOTE | 2019-11-22 17:42 | EKG12_ITS ---
Test Reason : CP Blood Pressure : / mmHG Vent. Rate : 064 BPM Atrial Rate : 064 BPM P-R Int : 154 ms QRS Dur : 088 ms QT Int : 376 ms P-R-T Axes : 036 008 037 degrees QTc Int : 387 ms Normal sinus rhythm Normal ECG Confirmed by VANITA CARTAGENA, REJI ([id number]), metropolitan editor NOREEN MEDINA ([id number] on 11/23/2019 3:09:11 PM Referred By: ISAI Confirmed By:REJI WALDRON MD
--- NOTE | 2019-11-22 17:57 | CT_ITS ---
STUDY: CTA CHEST REASON FOR EXAM: Male, 74 years old. LT SIDED CHEST PAIN -- HX:ASTHMA,HTN,SKIN CANCER,LUNG NODULE RADIATION DOSAGE (If Supplied By Facility): CTDIvol = ( 15.20 ) mGy, DLP = ( 497.72 ) mGycm TECHNIQUE: The examination was performed with the intravenous administration of IV 100mL Isovue-370. Post-processing of the angiographic images was performed, with multiplanar reformation and 3D reconstruction. Individualized dose optimization techniques were used for this CT. COMPARISON: 12/30/2017 FINDINGS: Normal enhancement of the main pulmonary artery and right and left pulmonary arteries. Normal enhancement of the bilateral peripheral pulmonary arteries. There is no demonstrated pulmonary embolism. 4.5 cm aneurysm of the ascending thoracic aorta. There is no demonstrated aortic dissection. Normal heart and pericardium. Normal mediastinum. Normal hilar regions. Normal visualized trachea and bronchi. The lungs are well expanded. Multiple calcified pulmonary granulomata. Multiple stable subcentimeter benign fibromas along the right pulmonary fissures. Normal chest wall structures. Normal osseous structures. Normal visualized upper abdomen. CT/CTA Chest W/WO Contrast IMPRESSION: No pulmonary embolus or aortic dissection. 4.5 cm aneurysm of the ascending thoracic aorta. Electronically Signed: Rigo Flores MD at 18:52 EDT Tel , Service support ,
[2019-11-22 17:58] LABS: Absolute Lymphocyte Count 1.75 X10^3/uL (0.83-4.51); Absolute Neutrophil Count 3.6 X10^3/uL (2.0-7.7); Basophil# 0.05 X10^3/uL; Basophil% 0.8 % (0-1); Eosinophil# 0.28 X10^3/uL; Eosinophils% 4.6 % (0-5); Hematocrit 44.1 % (40-54); Hemoglobin 15.1 g/dL (13.0-16.5); Lymphocyte # 1.75 X10^3/ul (4.0); Lymphocyte % 28.8 % (19-41); Mean Corp Hgb Conc 34.2 g/dL (32-36); Mean Corpuscular Volume 96.5 fL (80-94); Mean Platelet Vol. 8.6 fl (6.2-12.0); Monocyte# 0.44 X10^3/uL; Monocyte% 7.2 % (0-10); NRBC Flagged by Analyzer 0 % (0-5); Neutrophil # 3.55 X10^3/uL (2.7-7.7); Neutrophil % 58.4 % (47-70); Platelet Count 168 K/mm3 (150-450); RBC Distribution Width CV 12.3 % (11.6-14.6); RBC Distribution Width SD 43.6 fl (35.1-43.9); Red Blood Count 4.57 M/mm3 (4.6-6.2); White Blood Count 6.1 K/mm3 (4.4-11.0)
[2019-11-22 18:17] LABS: Anion Gap 8 (5-15); BUN 11 mg/dL (7-18); BUN/Creat Ratio 10.2 RATIO (10-20); Calcium,Total 9.1 mg/dL (8.5-10.1); Chloride 107 mmol/L (98-107); Creatinine, Serum 1.08 mg/dL (0.70-1.30); EST Glomerular Filtration Rate 71 mL/min (>60); Est Glom Filt Rate - Afr Amer 86 mL/min (>60); Estimated Creatinine Clearance 61.83 ml/min; Glucose 95 mg/dL (74-106); Sodium Level 142 mmol/L (136-145)
[2019-11-22 18:39] VITALS: BP 160/85; PULSE 62; RESP 15; O2SAT 97
[2019-11-22 19:00] VITALS: BP 138/76; PULSE 58; RESP 13; O2SAT 96
--- NOTE | 2019-11-22 19:06 | ED.DCSUM_ITS ---
- ER Visit Summary Date of Service: 11/22/19 Chief Complaint: Chest pain History of Present Illness: The patient is a [address] Anderson and Dr. valencia. He reports that he has chest pain that began this morning. Is a continuous aching pain is 6 out of 10 at worst and 2 out of 10 currently. It is worsened by turning to the left, breathing, or laying on the floor. Is relieved by remaining still. He denies any associated nausea, vomiting, diaphoresis, shortness of breath. Patient denies any fall or MVA. He does report that he was out in the yard 2 days ago using a shovel to dig things up and plant. Physical Examination: Vitals: Stable. Afebrile. General: Well-nourished and well-developed. Head: Normocephalic atraumatic. Neck: Supple, no lymphadenopathy. No JVD. Nontender. Cardiovascular: Regular rate and rhythm. No murmurs. Respiratory: No respiratory distress. Clear to auscultation bilaterally. Abdominal: Soft, nontender, nondistended, normal bowel sounds. No guarding, rebound, or peritoneal signs. Back: Nontender. Extremities: Nontender, no edema. Skin: Normal color, no rash. Neurologic: Alert and oriented ?3. Cranial nerves II through XII are intact. Normal strength and sensation. Psych: Normal affect. Test Results: EKG is sinus at [address] changes. Is unchanged from 2018. Troponin is negative despite greater than 8 hours of constant pain. Chem-7 is normal. CBC is normal. Clinical Impression(s) from Imaging Studies Chest CTA 11/22/19 17:57 IMPRESSION: No pulmonary embolus or aortic dissection. 4.5 cm aneurysm of the ascending thoracic aorta. Electronically Signed: Rigo Flores MD at 18:52 EDT Tel , Service support , Emergency Department Course and Treatment: It appears on his last cardiology office visit in August of this year his thoracic aortic aneurysm was 4.3 cm. I do not feel that this increase in 2 mm is the cause of his pain. It may actually be just in the measurement of the the radiologist. Patient is resting comfortably and refused pain medications. Treatment Plan: Patient has very atypical chest pain. I feel that he is a suitable candidate for further outpatient evaluation. I suspected that had doing the yard work yesterday he may have pulled an intercostal muscle. He will be discharged instructions to follow-up his primary care physician in 3 to 5 days if not improving. Return to the emergency department for any worsening symptoms. Disposition: To home in improved and stable condition. Impression: 1. Atypical chest pain. 2. STEVE score of 2. 3. 4.5 cm thoracic aortic aneurysm. This note was generated with [employer] dictation software. It may contain incorrect words, spelling, and punctuation that were not noted in review of the chart prior to signing ED Disposition - Plan for ED Patient: Disposition: Home or Assisted Living Instructions: ED Chest Pain Atypical Unkn Cause Referrals: Love Valencia DO [Primary Care Provider] - 3-5 Days if not improving Carlos Anderson MD [STAFF PHYSICIAN] -
[2019-11-22 19:34] VITALS: BP 138/76; PULSE 65; RESP 16; O2SAT 96
--- NOTE | 2019-11-22 19:35 | ED.RN ---
REVIEWED D/C INSTRUCTIONS, FOLLOW UP CARE, AND S/S THAT WOULD WARRANT A RETURN TO THE ED WITH PT. PT VERBALIZED AN UNDERSTANDING AND DENIES FURTHER QUESTIONS FOR THIS RN. PT SKIN P/W/D, RESP EVEN AND UNLABORED, PT A&O X X3, NO DISTRESS NOTED. PT AMBULATED OUT OF ED, GAIT STEADY.
== END 2019-11-22 19:36 | disposition home or self-care (01) ==
LOC: ED 18:43
PROVIDERS: Emergency Provider Emergency Medicine; PCP Internal Medicine
DX: R07.89 Other chest pain (principal); I71.2 Thoracic aortic aneurysm, without rupture; I34.1 Nonrheumatic mitral (valve) prolapse; J45.909 Unspecified asthma, uncomplicated; E78.00 Pure hypercholesterolemia, unspecified; Z86.718 Personal history of other venous thrombosis and embolism; Z79.82 Long term (current) use of aspirin; Z79.899 Other long term (current) drug therapy
CPT/HCPCS: 71275; 80048; 84484; 85025; 93005; 99285; Q9967; A4216

== ENCOUNTER → 2020-02-08 08:44 | Outpatient (CLI) | payer MEDICARE, OTHER, SELFPAY ==
--- NOTE | 2020-02-08 08:47 | US_ITS ---
STUDY: RENAL ULTRASOUND - COMPLETE REASON FOR EXAM: Male, 74 years old. RENAL CYSTS TECHNIQUE: Ultrasound evaluation of the kidneys was performed with real-time and static min-scale imaging. COMPARISON: Comparison is made with prior examination of 05-24-17. FINDINGS: RIGHT KIDNEY: Normal location of the right kidney, which is normal in size. The right kidney measures 10.7 cm x 6.4 cm x 5.9 cm. There is a normal cortex of the right kidney. The renal cortex measures 1.4 cm. There is a 1.1 cm x 1 cm x 1.1 cm cyst. There are no right renal calculi. There is no right hydronephrosis. DISTAL RIGHT URETER: There is non-visualization of the distal right ureter. There is no demonstrated right ureterovesical junction calculus. There is a visualized right ureteral jet. LEFT KIDNEY: Normal location of the left kidney, which is normal in size. The left kidney measures 11 cm x 4.8 cm x 5.4 cm. There is a normal cortex of the left kidney. The renal cortex measures 1.2 cm. There is no left renal mass or cyst. There are no left renal calculi. There is no left hydronephrosis. DISTAL LEFT URETER: There is non-visualization of the distal left ureter. There is no demonstrated left ureterovesical junction calculus. There is a visualized left ureteral jet. BLADDER: The distended urinary bladder has a volume of 448.5 ml. There is a normal wall thickness of the distended urinary bladder. There is no demonstrated mass within the urinary bladder. There are no demonstrated bladder calculi. US/Kidney and Bladder IMPRESSION: 1.1 cm x 1 NATALIE by 1.1 cm right renal cyst. This is in the mid lateral aspect of the kidney. Electronically Signed: Castillo Coleman, at 15:13 EDT , Service support ,
== END ==
PROVIDERS: PCP Internal Medicine; Referring Provider Internal Medicine; Visit Provider Internal Medicine
DX: N28.1 Cyst of kidney, acquired (principal); R10.11 Right upper quadrant pain
CPT/HCPCS: 76770

== ENCOUNTER → 2020-02-11 08:51 | Outpatient (CLI) | payer MEDICARE, OTHER, SELFPAY ==
--- NOTE | 2020-02-11 08:54 | US_ITS ---
STUDY: ABDOMINAL ULTRASOUND - RIGHT UPPER QUADRANT REASON FOR VISIT: Male, 74 years old RUQ PAIN TECHNIQUE: Ultrasound evaluation of the right upper quadrant was performed with real-time and static adrian-scale imaging. TECHNICAL QUALITY: Adequate. COMPARISON: Comparison is made with prior examination dated 08/06/2019. FINDINGS: Liver: The liver measures 12.2 cm. There is increased echogenicity consistent with fatty infiltration. The bile ducts are within normal limits. There is hepatic color flow. The direction of portal flow is hepatopetal. There is no demonstrated mass lesion. Gallbladder: Normal distended gallbladder. The gallbladder wall measures 2.2 mm. There is a negative sonographic Harvey''s sign. There is no pericholecystic fluid. There are no gallstones. Common Bile Duct (C.B.D.): The common bile duct measures 2.3 mm. Pancreas: Normal size of the head, body and tail of the pancreas. There is normal echogenicity of the pancreas. There is no demonstrated pancreatic mass or cyst. Right Kidney: Normal size of the right kidney. The right kidney measures 9.9 cm x 6.3 cm x 5.4 cm. Normal renal cortex. The right cortex measures 1.7 cm. There is a 1.1 cm x 1.1 cm x 0.8 cm cyst. There is no right hydronephrosis. US/Liver IMPRESSION: Fatty infiltration of the liver. Small cyst in the upper pole of the right kidney. This is unchanged. Electronically Signed: Castillo Coleman, at 13:32 EDT , Service support ,
== END ==
PROVIDERS: PCP Internal Medicine; Referring Provider Internal Medicine; Visit Provider Internal Medicine
DX: R10.11 Right upper quadrant pain (principal)
CPT/HCPCS: 76705

== ENCOUNTER → 2020-07-21 18:08 | Outpatient (CLI) | payer MEDICARE, OTHER, SELFPAY ==
[2020-02-12 13:32] VITALS: BMI 29.9
[2020-07-21 18:10] LABS: Bacteria 0 SEEN /hpf (None Seen); Mucous, Urine 0 SEEN /hpf (<or=2+); Squamous Epithelial Cells - UA 0 SEEN /hpf (0-5); White Blood Cells 0 SEEN /hpf (0-5)
[2020-07-21 18:23] LABS: Color, Urine Yellow (Yellow); Glucose, Dipstick Normal (Normal); Ketone-Dipstick Negative (Negative); Leukocyte Esterase-Dipstick Negative /ul (Negative); Nitrite-Dipstick Negative (Negative); Occult Blood-Urine 25 /ul (Negative); Protein-Dipstick Negative (Negative); Urine Bilirubin Dipstick Negative (Negative); Urine Clarity Clear (Clear); Urine Urobilinogen Normal (Normal)
[2020-07-21 18:37] LABS: Red Blood Cells-Urine 0-5 SEEN /hpf (0-5)
== END ==
PROVIDERS: PCP Internal Medicine; Referring Provider Urology; Visit Provider Urology
DX: R31.29 Other microscopic hematuria (principal)
CPT/HCPCS: 81001

== ENCOUNTER → 2020-08-15 | Outpatient (CLI) | payer MEDICARE, OTHER, SELFPAY ==
[2020-02-12 13:32] VITALS: BMI 29.9
[2020-08-15 12:29] LABS: Absolute Lymphocyte Count 1.54 X10^3/uL (0.83-4.51); Absolute Neutrophil Count 2.9 X10^3/uL (2.0-7.7); Basophil# 0.03 X10^3/uL; Basophil% 0.6 % (0-1); Eosinophil# 0.21 X10^3/uL; Eosinophils% 4.1 % (0-5); Hematocrit 42.2 % (40-54); Hemoglobin 14.7 g/dL (13.0-16.5); Lymphocyte # 1.54 X10^3/ul (4.0); Lymphocyte % 30.1 % (19-41); Mean Corp Hgb Conc 34.8 g/dL (32-36); Mean Corpuscular Hgb 33.2 pg (27.0-32.0); Mean Corpuscular Volume 95.3 fL (80-94); Mean Platelet Vol. 9.5 fl (6.2-12.0); Monocyte# 0.42 X10^3/uL; Monocyte% 8.2 % (0-10); NRBC Flagged by Analyzer 0 % (0-5); Neutrophil # 2.91 X10^3/uL (2.7-7.7); Neutrophil % 56.8 % (47-70); Platelet Count 180 K/mm3 (150-450); RBC Distribution Width CV 12.1 % (11.6-14.6); RBC Distribution Width SD 42.2 fl (35.1-43.9); Red Blood Count 4.43 M/mm3 (4.6-6.2); White Blood Count 5.1 K/mm3 (4.4-11.0)
[2020-08-15 12:37] LABS: ALB/GLOB Ratio 1.2 RATIO (0.9-2.4); AST(SGOT) 21 U/L (15-37); Alanine Aminotransfer ALT/SGPT 38 U/L (16-61); Albumin, Serum 3.6 g/dL (3.2-5.0); Alkaline Phosphatase 107 U/L (45-117); Anion Gap 7 (5-15); BUN 11 mg/dL (7-18); BUN/Creat Ratio 11.7 RATIO (10-20); Calcium,Total 9.3 mg/dL (8.5-10.1); Chloride 106 mmol/L (98-107); Creatinine, Serum 0.94 mg/dL (0.70-1.30); EST Glomerular Filtration Rate 83 mL/min (>60); Est Glom Filt Rate - Afr Amer 101 mL/min (>60); Globulin 2.9 g/dL (2.2-4.2); Glucose 93 mg/dL (74-106); Potassium 4.2 mmol/L (3.5-5.1); Protein, Total 6.5 g/dL (6.4-8.2); Sodium Level 140 mmol/L (136-145); Thyroid Stim Hormone (TSH) 1.56 uIU/mL (0.358-3.74)
== END | disposition home or self-care (01) ==
LOC: LABSPEC 12:00
PROVIDERS: PCP Internal Medicine; Referring Provider Internal Medicine; Visit Provider Internal Medicine
DX: R07.89 Other chest pain (principal)
CPT/HCPCS: 80053; 84443; 84484; 85025

== ENCOUNTER → 2020-08-23 06:35 | Outpatient (CLI) | payer MEDICARE, OTHER, SELFPAY ==
[2020-02-12 13:32] VITALS: BMI 29.9
--- NOTE | 2020-08-23 08:29 | STRESSREP_ITS ---
Stress Test Report Date: 08-23-2020 Procedure: Exercise tolerance test/imaging study Indications: Chest pain; abnormal coronary calcium score Consent: Per the patient Procedure: The patient exercised on a Joseluis protocol for 9 minutes and 30 seconds completing Stage III and 30 seconds of Stage IV achieving a peak heart rate of 137 bpm (93% predicted maximal heart rate) with a peak blood pressure 174/90 mmHg and a peak MET capacity of 10 METs. The baseline ECG demonstrated sinus bradycardia. The peak exercise ECG demonstrated no obvious ECG changes. There was an isolated PVC during exercise. The functional capacity was considered good. There was no complaint of chest discomfort during exercise or recovery. The examination was discontinued secondary to leg discomfort. Impression: 1. Technically adequate (percent predicted maximal heart rate greater than 85%) exercise tolerance test 2. Peak exercise ECG with no obvious ECG changes 3. There was an isolated PVC during exercise 4. Nuclear images pending Myocardial perfusion imaging study: Technique: The patient was injected with 10.4 mCi of technetium 99m Cardiolite and subsequently rest SPECT Cardiolite nuclear imaging was obtained in the horizontal long, vertical long, and short axis views. The patient exercised on a Joseluis protocol for 9 minutes and 30 seconds completing Stage III and 30 seconds of Stage IV achieving a peak heart rate of 137 bpm (93% predicted maximal heart rate) with a peak blood pressure 174/90 mmHg and a peak MET capacity of 10 METs. The patient was injected with 32.9 mCi of technetium 99m Cardiolite and subsequently stress SPECT Cardiolite nuclear imaging was obtained in the horizontal long, vertical long, and short axis views. A gated Cardiolite study at peak stress was obtained. Interpretation: Rest and stress SPECT Cardiolite nuclear imaging status post realignment, normalization, and attenuation correction, the appearance of body motion during image acquisition as well as demonstrating at rest the appearance of a small area of subtle diminished tracer uptake near the distal anterior segments which appears to improve/normalize following stress. There is end systolic thickening and brightening. The gated Cardiolite study demonstrates myocardial thickening and inward wall motion. The reported LVEF is 66%. Impression: 1. Rest and stress SPECT Cardiolite nuclear imaging demonstrate parents of body motion during image acquisition and myocardial perfusion changes appear at rest which appear to improve/normalize following stress appearing compatible with shifting soft tissue attenuation/artifact with no myocardial perfusion changes considered diagnostic for associated stress-induced myocardial ischemia. 2. The gated Cardiolite study reports an LVEF of 66%. This note was generated with [employer] software. It may contain incorrect words, spelling, and punctuation that were not noted in checking the note before signing.
== END ==
PROVIDERS: PCP Internal Medicine; Referring Provider Internal Medicine; Visit Provider Internal Medicine
DX: R07.89 Other chest pain (principal)
CPT/HCPCS: 78452; 93017; A9500; A4216

== ENCOUNTER → 2020-10-28 15:50 | Outpatient (CLI) | payer MEDICARE, OTHER, SELFPAY ==
[2020-02-12 13:32] VITALS: BMI 29.9
--- NOTE | 2020-10-28 15:52 | CT_ITS ---
STUDY: CT CHEST WITH CONTRAST REASON FOR EXAM: Male, 75 years old. thoracic aortic aneurysm RADIATION DOSAGE (If Supplied By Facility): CTDIvol = ( 21.095 ) mGy, DLP = ( 554.68 ) mGycm TECHNIQUE: Transaxial imaging was performed following intravenous administration of IV 100mL Isovue-370. Individualized dose optimization techniques were used for this CT. COMPARISON: 11/22/2019 FINDINGS: The lungs are normal. There is no demonstrated pleural abnormality. Normal heart and pericardium. There are calcifications of the coronary arteries. Normal mediastinum. Normal hilar regions. Normal enhanced pulmonary arteries. Normal aorta arch and descending thoracic aorta. The ascending aorta measures 4.0 cm in diameter which is at the upper limits of normal. Mild dextroscoliosis of the thoracic spine with degenerative disc disease. There is no demonstrated abnormality of the visualized upper abdomen. CT/Chest WITH Contrast IMPRESSION: Normal enhanced CT Chest examination. Electronically Signed: Edson Figueroa MD at 9:49 EDT Tel , Service support ,
[2020-10-28 16:06] LABS: CREATININE FINGERSTICK 1.5 mg/dL (0.70-1.30)
== END ==
PROVIDERS: PCP Internal Medicine; Referring Provider Internal Medicine Cardiovascular Disease; Visit Provider Internal Medicine Cardiovascular Disease
DX: I71.2 Thoracic aortic aneurysm, without rupture (principal)
CPT/HCPCS: 71260; Q9967

== ENCOUNTER → 2020-11-30 13:50 | Outpatient (CLI) | payer MEDICARE, OTHER, SELFPAY ==
[2020-11-23 13:00] VITALS: BMI 29.9
--- NOTE | 2020-11-30 13:52 | VDLE_ITS ---
Reason For Study: PAIN RIGHT LEFT GSV is normal. GSV is normal. CFV is compressible, spontaneous, phasic, CFV is compressible, spontaneous, phasic, competent and demonstrates normal competent, and demonstrates normal augmentation. augmentation. FV is compressible, spontaneous, phasic, FV is compressible, spontaneous, phasic, competent and demonstrates normal competent and demonstrates normal augmentation. augmentation. POP V is compressible, spontaneous, phasic, POP V is compressible, spontaneous, phasic, competent and demonstrates normal competent and demonstrates normal augmentation. augmentation. T/P Trunk is compressible. T/P Trunk is compressible. PTV is compressible. PTV is compressible. RT PerV is compressible. LT PerV is compressible. Procedure This is a venous duplex using B-mode, color flow and spectral Doppler. Exam performed in department. The exam was diagnostic. A preliminary report was called and/or faxed to Dr. Anderson's RN @ [phone]. VL/Venous Duplex US - [place] Extrem Interpretation Summary Bilateral no DVT or SVT visualized. Ordering Physician: Carlos Anderson Referring Physician: Love Valencia Performed By: Funmilayo Bess, ESE, RVT
== END ==
PROVIDERS: PCP Internal Medicine; Referring Provider Internal Medicine Cardiovascular Disease; Visit Provider Internal Medicine Cardiovascular Disease
DX: M79.662 Pain in left lower leg (principal); M79.661 Pain in right lower leg
CPT/HCPCS: 93970

== ENCOUNTER 2021-01-28 14:43 | Emergency (ER) | payer MEDICARE, OTHER, SELFPAY ==
[2020-11-23 13:00] VITALS: BMI 29.9
[2021-01-28 14:44] VITALS: BP 170/92; PULSE 53; RESP 16; TEMP 37; O2SAT 97; BMI 28.8
--- NOTE | 2021-01-28 15:04 | CT_ITS ---
HISTORY: back pain EXAMINATION: CT Abdomen And Pelvis W/O Contrast Injection TECHNIQUE: Multiple axial images were obtained of the abdomen and pelvis without oral or IV contrast. A radiation dose optimization technique was used for this scan. IV Contrast dosage and agent: None. Oral contrast: None. COMPARISON: 07/28/19 FINDINGS: LOWER CHEST: Dependent changes. No cardiomegaly or pericardial effusion. LIVER: Homogeneous. No focal mass. GALLBLADDER AND BILIARY TREE: No calcified gallstones. No gallbladder distension or wall edema. No intra- or extrahepatic biliary ductal dilation. PANCREAS: No focal cystic or solid mass. SPLEEN: Normal size without focal cystic or solid mass. ADRENAL GLANDS: No nodules. KIDNEYS AND URETERS: Normal renal size and position. No hydronephrosis or nephrolithiasis. PERITONEUM: No ascites or free air. BOWEL: Normal appendix. No stomach or bowel distension. No focal inflammatory bowel wall changes. LYMPH NODES: No enlarged mesenteric or retroperitoneal lymph nodes. VESSELS: Aorta is non-dilated. URINARY BLADDER: Unremarkable. REPRODUCTIVE ORGANS: No pelvic masses. Stable prostatic hypertrophy. ABDOMINAL WALL: Small fat-containing umbilical hernia. BONES: No acute or aggressive abnormality. Stable degenerative changes lumbar spine with lumbar stenosis at L3-4 and L4-5. CT/Abdomen/Pelvis without Cont IMPRESSION: No acute findings in the abdomen or pelvis. Stable degenerative changes of the lumbar spine with stenosis at L3-4 and L4-5. Individualized dose optimization techniques were used for this CT. at 1606 Reported and signed by: Rosalio Pichardo MD Electronically Signed: Rosalio Pichardo MD at 16:05 EDT Tel , Service support ,
--- NOTE | 2021-01-28 15:06 | ED.VIS.BACK ---
HPI History of Present Illness Chief Complaint: Back Informant: patient Narrative Narrative: Presenting after discussion with PCP to the ED for evaluation of low back pain. Started a week ago, saw his chiropractor Saturday states had adjustment. Symptoms return Saturday with radiating pain down his right leg to his knee. No paresthesias. He went back to the chiropractor yesterday readjusted with no relief. Pain worsening today. Called his PCP who called in prednisone for which she has not picked up and started. Referred to the ED for increased pain control. He status post 600 mg ibuprofen 6 hours ago. No history of gastric ulcers or kidney injury. He is tolerated [place] and oxycodone's in the past with side effects of constipation. Denies urinary symptoms. States today however pain radiates bilateral lower. Pain worse with movement. Denies any urinary symptoms. Denies vomiting or diarrhea. [facility] Medical History (Updated 01/28/21 @ 16:[address] Shashi Mayfield DO) Asthma Atherosclerotic heart disease of [place] coronary artery without angina pectoris History of DVT (deep vein thrombosis) Hyperlipemia Non-rheumatic mitral regurgitation Nonrheumatic mitral (valve) prolapse Paroxysmal atrial tachycardia Thoracic aortic aneurysm without rupture Home Medications aspirin 81 mg tablet,delayed release 81 mg PO DAILY 04/28/18 [History Last Taken Unknown] atorvastatin 10 mg tablet 10 mg PO DAILY 04/28/18 [History Last Taken Unknown] cholecalciferol (vitamin D3) 125 mcg (5,000 unit) tablet 5,000 unit PO DAILY 04/28/18 [History Last Taken Unknown] omega-3 fatty acids 500 mg capsule 500 mg PO DAILY 04/28/18 [History Last Taken Unknown] tadalafil 20 mg tablet 20 mg PO DAILY PRN 04/28/18 [History Last Taken Unknown] albuterol sulfate 90 mcg/actuation aerosol inhaler 1 puff INHALATION Q6H PRN 04/30/18 [History Last Taken Unknown] hyoscyamine sulfate 0.125 mg tablet 0.125 mg PO BID tab 04/30/18 [History Last Taken Unknown] buspirone 10 mg tablet 10 mg PO TID tab 02/12/19 [History Last Taken Unknown] diclofenac sodium 1 % topical gel 2 g TOPICAL ONCE PRN 02/12/19 [History Last Taken Unknown] guaifenesin 600 mg tablet, extended release 12 hr 600 mg PO Q12H PRN 02/12/19 [History Last Taken Unknown] ibuprofen 200 mg capsule 200 mg PO Q6H PRN 02/12/19 [History Last Taken Unknown] hydrocortisone acetate 25 mg MO PRN PRN 11/22/19 [History Last Taken Unknown] beclomethasone dipropionate 80 mcg/actuation HFA breath activated aerosol 1 inh INHALATION .QOD g 02/12/20 [History Last Taken Unknown] clobetasol 0.05 % topical cream 1 applic TOPICAL DAILY PRN 11/23/20 [History Last Taken Unknown] losartan 50 mg tablet 50 mg PO DAILY 11/23/20 [History Last Taken Unknown] triamcinolone acetonide 55 mcg nasal spray aerosol 1 spray INTRANASAL DAILY 11/23/20 [History Last Taken Unknown] zinc 50 mg tablet 50 mg PO BID 11/23/20 [History Last Taken Unknown] docusate sodium [Colace] 100 mg PO BID PRN #60 cap 01/28/21 [Rx Last Taken Unknown] hydrocodone-acetaminophen 1 tab PO Q6H PRN 3 Days #12 tab 01/28/21 [Rx Last Taken Unknown] Allergy/AdvReac Type Severity Reaction Status Date / Time azithromycin AdvReac Diarrhea Verified 01/28/21 14:53 [From Zithromax Z-Nithin] erythromycin base AdvReac Diarrhea Verified 01/28/21 14:53 [Erythromycin Base] Penicillins AdvReac Diarrhea Verified 01/28/21 14:53 Family History Mother Hypertension Surgical History History of Achilles tendon repair History of arthroscopic knee surgery Social History Smoking Status: Never smoker alcohol intake: current ROS ROS ED Constitutional Constitutional ED: Denies chills, fever(s) or sweats Eyes Eyes: Denies change in vision ENT ENT ED: Denies dysphagia or sore throat Cardiovascular Cardiovascular: Denies chest pain, leg edema, palpitations or racing heartbeat Respiratory/Chest Respiratory/Chest: Denies cough, dyspnea or dyspnea on exertion Gastrointestinal Gastrointestinal: Denies abdominal pain, diarrhea, nausea or vomiting Genitourinary Genitourinary ED: Denies dysuria, hematuria or urinary frequency Musculoskeletal Musculoskeletal: Reports back pain; Denies extremity pain or neck pain Integumentary Denies rash or wounds Neurologic Neurologic: Denies headache(s), paresthesias or weakness EXAM Physical Exam Const Vital Signs: 01/28/21 14:44 Temperature 98.6 F Temperature Source Temporal Pulse Rate 53 L Respiratory Rate 16 Blood Pressure 170/92 H Blood Pressure Mean 118 Pulse Ox 97 Oxygen Delivery Method Room Air Positive well nourished and well developed General Appearance ED: well developed and NAD HEENT Reports moist mucous membranes normocephalic and atraumatic Eyes PERRL, EOMs intact bilaterally and conjunctivae normal General Eye ED: Yes normal appearance of both eyes Neck no lymphadenopathy and supple General: Negative for tenderness Chest Wall Chest: Negative for tenderness Resp normal respiratory effort and normal air movement Effort and Inspection: symmetric chest movement; Negative for respiratory distress Cardio regular rate, regular rhythm and no murmurs Peripheral Pulses: pulses 2+ throughout GI normal to inspection, nondistended, normoactive bowel sounds and non-tender Palpation: Negative for guarding or rebound tenderness present Back/Spine no CVA tenderness Back/Spine Narrative: No midline tenderness, bilateral paraspinal tenderness right greater than left. Straight leg test negative bilaterally. 2+ patellar reflex bilaterally. Thoracic Spine / Upper Back: paraspinal muscle tenderness Extremity normal to inspection General Extremety ED: Negative for edema or tenderness General Extremity: Negative for edema Neuro oriented x3 and no sensory deficits noted Sensorium / Orientation: awake and alert Skin no rashes or lesions noted and no wounds MDM MDM MDM Narrative Medical decision making narrative: Patient with sciatica symptoms pain on the right leg. Increasing pain across his back since yesterday. CT scan abdomen pelvis obtained no intra-abdominal process however noted stenosis at L3-L4, L4-L5. Patient was treated with Toradol and [place] improving symptoms and able to move better. Patient continues ibuprofen every 6 hours, prednisone is at his pharmacy. Short course of [place] will be written for symptom control along with Colace to prevent constipation. Patient will follow-up with PCP for further evaluation and treatment as an outpatient. All questions answered. Radiography Diagnostic Testing: Radiology Impression Abdomen/Pelvis CT 01/28/21 15:04 IMPRESSION: No acute findings in the abdomen or pelvis. Stable degenerative changes of the lumbar spine with stenosis at L3-4 and L4-5. Individualized dose optimization techniques were used for this CT. at 1606 Reported and signed by: Rosalio Pichardo MD Electronically Signed: Rosalio Pichardo MD at 16:05 EDT Tel , Service support , Discharge Plan Triage Chief Complaint: Back ED Provider: Shashi Mayfield Dx/Rx/DC Orders Clinical Impression: Lumbar spinal stenosis, Sciatica Instructions: ED Sciatica Prescriptions: New hydrocodone-acetaminophen 5-325 mg tablet 1 tab PO Q6H PRN (Reason: pain) 3 Days Qty: 12 RF: 0 docusate sodium [Colace] 100 mg capsule 100 mg PO BID PRN (Reason: constipation) Qty: 60 RF: 0 No Action hyoscyamine sulfate 0.125 MG Tablet 0.125 mg PO BID RF: 0 ProAir HFA 90 mcg/actuation HFA aerosol inhaler 1 puff INHALATION Q6H PRN (Reason: Sob &/Or Wheezing) RF: 0 buspirone 10 mg tablet 10 mg PO TID RF: 0 atorvastatin 10 mg tablet 10 mg PO DAILY RF: 0 aspirin 81 mg tablet,delayed release (DR/EC) 81 mg PO DAILY RF: 0 omega-3 fatty acids 500 mg capsule 500 mg PO DAILY RF: 0 cholecalciferol (vitamin D3) 1,000 UNIT Tablet 5,000 unit PO DAILY RF: 0 Cialis 20 mg tablet 20 mg PO DAILY PRN (Reason: OTHER) RF: 0 diclofenac sodium 1 % gel 2 g TOPICAL ONCE PRN (Reason: OTHER) RF: 0 guaifenesin [Mucinex] 600 mg tablet extended release 12hr 600 mg PO Q12H PRN (Reason: Cough) RF: 0 ibuprofen 200 mg capsule 200 mg PO Q6H PRN (Reason: Pain Or Fever) RF: 0 Qvar RediHaler 80 mcg/actuation HFA aerosol breath activated 1 inh INHALATION .QOD RF: 0 losartan 50 mg tablet 50 mg PO DAILY RF: 0 zinc 50 mg tablet 50 mg PO BID RF: 0 triamcinolone acetonide [Nasacort] 55 mcg aerosol,spray 1 spray intranasal DAILY RF: 0 clobetasol 0.05 % cream 1 applic topical DAILY PRN (Reason: cream) RF: 0 hydrocortisone acetate 25 MG suppository 25 mg MO PRN PRN (Reason: Constipation) RF: 0 Primary Care Provider: Love Valencia Referrals: Love Valencia DO [Primary Care Provider] - 5-7 Days Disposition Disposition: Home, Self Care
[2021-01-28] MEDS: HYDROcodone Bitartrate/Apap 5/325 Tablet PO (15:15)
[2021-01-28] MEDS: Ketorolac 30 MG/ML Syringe IM (15:15)
[2021-01-28 17:01] VITALS: PULSE 82; RESP 17; O2SAT 97
== END 2021-01-28 17:02 | disposition home or self-care (01) ==
PROVIDERS: Emergency Provider Emergency Medicine; PCP Internal Medicine
DX: M48.061 Spinal stenosis, lumbar region without neurogenic claudication (principal); M54.31 Sciatica, right side; E78.5 Hyperlipidemia, unspecified; I34.1 Nonrheumatic mitral (valve) prolapse; I47.1 Supraventricular tachycardia; I71.2 Thoracic aortic aneurysm, without rupture; J45.909 Unspecified asthma, uncomplicated; I25.10 Atherosclerotic heart disease of native coronary artery without angina pectoris; Z86.718 Personal history of other venous thrombosis and embolism; Z79.82 Long term (current) use of aspirin; Z79.899 Other long term (current) drug therapy
CPT/HCPCS: 74176; 96372; 99282

== ENCOUNTER → 2021-02-09 16:58 | Outpatient (CLI) | payer MEDICARE, OTHER, SELFPAY ==
[2021-01-28 14:44] VITALS: BMI 28.8
--- NOTE | 2021-02-09 17:01 | MRI_ITS ---
HISTORY: RADICULOPATHY, lbp, bilat leg pain x 2 wks EXAMINATION: MR Spine Lumbar W/O Contrast TECHNIQUE: Multiplanar and multisequence MR images of the lumbar spine. IV Contrast dosage and agent: None. COMPARISON: None FINDINGS: VERTEBRAE: No acute fracture. No expansile or destructive lesion. Scoliosis. Normal sagittal alignment CORD: Normal visualized portions of the spinal cord and cauda equina, with the tip of the conus medullaris at the L1 level. No intradural or intramedullary soft tissue mass or epidural fluid collection. SOFT TISSUES: Unremarkable. L1/L2: Circumferential annular bulge encroaches on the foramina, right side more severely than left. L2/L3: Circumferential annular bulge encroaches on the bilateral foramina, right more severely than left.. L3/L4: 5 mm right paracentral disc protrusion produces defect on the ventral aspect of the thecal sac and extends laterally into the right foramen severe foraminal stenosis. Circumferential annular bulge encroaches mildly on the left foramen. L4/L5: Circumferential annular bulge produces mild central and bilateral foraminal stenosis.. L5/S1: Circumferential annular bulge without significant central or foraminal stenosis. MRI/Spine Lumbar (Routine) IMPRESSION: Multilevel annular bulges with foraminal stenoses as above. 5 mm right paracentral disc protrusion at L3-4 with lateral extension producing central and right foraminal stenosis. at 2001 Reported and signed by: Rosalio Pichardo MD Electronically Signed: Rosalio Pichardo MD at 20:00 EDT Tel , Service support ,
== END ==
PROVIDERS: PCP Internal Medicine; Referring Provider Internal Medicine; Visit Provider Internal Medicine
DX: M54.16 Radiculopathy, lumbar region (principal)
CPT/HCPCS: 72148

== ENCOUNTER 2021-04-27 15:18 | Outpatient (CLI) | payer MEDICARE, OTHER, SELFPAY ==
[2021-04-27] MEDS: 0.9% Saline Lock 10 ML Syringe IV (15:28)
[2021-04-27 15:36] VITALS: BP 121/73; PULSE 70; RESP 16; TEMP 36.4; O2SAT 100; BMI 28.8
[2021-04-27 16:06] VITALS: BP 112/64; PULSE 60; RESP 16; TEMP 36.6; O2SAT 96
[2021-04-27 17:05] VITALS: BP 110/63; PULSE 53; RESP 16; TEMP 36.6; O2SAT 97
== END 2021-04-27 17:09 | disposition home or self-care (01) ==
LOC: MS3OUT 15:19 → MS3 15:20
PROVIDERS: PCP Internal Medicine; Referring Provider Nurse Practitioner Adult Health; Visit Provider Nurse Practitioner Adult Health
DX: Z23 Encounter for immunization (principal); U07.1 COVID-19
CPT/HCPCS: J7050; M0243; A4216; Q0240

== ENCOUNTER 2021-10-13 16:20 | Outpatient (CLI) | payer MEDICARE, OTHER, SELFPAY ==
--- NOTE | 2021-10-13 16:24 | CT_ITS ---
STUDY: CT LUMBAR SPINE WITH CONTRAST REASON FOR EXAM: Male, 76 years old. SOFT TISSUE MASS/PREVIOUS BACK SURGERY RADIATION DOSAGE (If Supplied By Facility): CTDIvol = ( 37.89 ) mGy, DLP = ( 1092.04 ) mGycm TECHNIQUE: The patient was scanned in a multi detector CT scanner. High resolution transaxial imaging was performed following the intravenous administration of IV 100mL Isovue-300. Images were obtained from to . Sagittal and coronal images were reconstructed. Individualized dose optimization techniques were used for this CT. COMPARISON: None FINDINGS: Normal lumbar lordosis. There is a levoscoliosis of the lumbar spine. Normal vertebrae of the lumbar spine. There is no demonstrated compression deformity or fracture of the visualized lumbar vertebrae. Moderate multilevel degenerative disease with endplate degenerative changes, facet degenerative change and multilevel disc bulges. Vacuum disc phenomenon noted at L1-2 and L3-4 Normal visualized paraspinous soft tissue structures. No discrete soft tissue mass is noted on the left side of the spine. CT/Spine Lumbar WITH Contrast IMPRESSION: Levoscoliosis with moderate degenerative disc disease. No acute findings. No identified paraspinal soft tissue mass. If there is continued clinical concern for soft tissue mass, recommend targeted ultrasound. Electronically Signed: Pranav Gibbons DO at 4:24 EDT ,
--- NOTE | 2021-10-13 16:24 | CT_ITS ---
EXAM: CT thoracic spine. HISTORY: SOFT TISSUE MASS/PRVIOUS BACK SURGERY TECHNIQUE: CT Spine Thoracic W/ Contrast Injection 2.5 mm axials, coronal and sagittal reconstructions. RADIATION DOSE: CTD/Vol 29.94 mGY, DLP 1080.18 mGy-cm. DOSE REDUCTION: A dose reduction technique was utilized for this exam. COMPARISON: None. LIMITATIONS: None. ALIGNMENT: Mild dextroscoliosis centered at the mid to lower thoracic spine. MINERALIZATION: Normal. VERTEBRA BODIES: Mild thoracic spondylosis. DISC SPACES: Vacuum disks at multiple lower thoracic levels. POSTERIOR ELEMENTS: Normal. SPINAL CORD: Normal. SPINAL CANAL: No evidence of spinal stenosis. PARASPINAL TISSUES: Normal. No soft tissue mass identified. OTHER: Calcified granuloma in the right upper lobe. Descending thoracic aorta is 2.[address]/Spine Thoracic WITH Contrast IMPRESSION: No mass or spinal stenosis evident on the enhanced CT. Mild degenerative changes. Upper limits of normal descending thoracic aorta without kar aneurysm. Electronically Signed: Lashell Henning MD at 22:24 EDT ,
[2021-10-13 16:41] LABS: CREATININE FINGERSTICK 0.8 mg/dL (0.70-1.30); EGFR FINGERSTICK > 60.0000 mL/min (>60)
== END 2021-10-13 23:59 | disposition home or self-care (01) ==
LOC: CT 16:23
PROVIDERS: PCP Internal Medicine; Referring Provider Internal Medicine; Visit Provider Internal Medicine
DX: M79.89 Other specified soft tissue disorders (principal)
CPT/HCPCS: 72129; 72132; Q9967

== ENCOUNTER 2021-10-17 07:18 | Outpatient (CLI) | payer MEDICARE, OTHER, SELFPAY ==
--- NOTE | 2021-10-17 13:51 | STRESSREP ---
Stress Test Report Date: 10-17-2021 Procedure: Exercise tolerance test/imaging study Indications: Chest pain Consent: Per the patient Procedure: The patient exercised on a Joseluis protocol for 9 minutes completing Stage III achieving a peak heart rate of 146 bpm (100% predicted maximal heart rate) with a peak blood pressure 170/74 mmHg and a peak MET capacity of 10 METs. The baseline ECG demonstrated sinus bradycardia. The peak exercise ECG demonstrated somatic/motion artifact with [id number] nonspecific ST segment variability. There were occasional PACs/PVCs during exercise and occasional PACs during recovery. The functional capacity was considered good. There was slight chest discomfort during exercise. The examination was discontinued secondary to dyspnea. Impression: 1. Technically adequate (percent predicted maximal heart rate greater than 85%) exercise tolerance test 2. Peak exercise ECG with somatic/motion artifact with beat to beat nonspecific ST segment variability 3. There were occasional PACs/PVCs during exercise and occasional PACs during recovery 4. Nuclear images pending Myocardial perfusion imaging study: Technique: The patient was injected with 13.8 mCi of technetium 99m Cardiolite and subsequently rest SPECT Cardiolite nuclear imaging was obtained in the horizontal long, vertical long, and short axis views. The patient exercised on a Joseluis protocol for 9 minutes completing Stage III achieving a peak heart rate of 146 bpm (100% predicted maximal heart rate) with a peak blood pressure 170/74 mmHg and a peak MET capacity of 10 METs. The patient was injected with 42.8 mCi of technetium 99m Cardiolite and subsequently stress SPECT Cardiolite nuclear imaging was obtained in the horizontal long, vertical long, and short axis views. A gated Cardiolite study at peak stress was obtained. Interpretation: Rest and stress SPECT Cardiolite nuclear imaging status post realignment, normalization, and attenuation correction, demonstrates the appearance of relative uniform tracer uptake and myocardial perfusion appearing within normal limits. There is end systolic thickening and brightening. The gated Cardiolite study demonstrates myocardial thickening and inward wall motion. The reported LVEF is 58%. Impression: 1. Rest and stress SPECT Cardiolite nuclear imaging demonstrate relative uniform tracer uptake and myocardial perfusion appearing within normal limits. 2. The gated Cardiolite study reports an LVEF of 58%. This note was generated with [employer] software. It may contain incorrect words, spelling, and punctuation that were not noted in checking the note before signing.
== END 2021-10-17 23:59 | disposition home or self-care (01) ==
LOC: CVS 07:19
PROVIDERS: PCP Internal Medicine; Referring Provider Internal Medicine; Visit Provider Internal Medicine
DX: R07.9 Chest pain, unspecified (principal)
CPT/HCPCS: 78452; 93017; A9500; A4216

== ENCOUNTER 2021-10-19 14:54 | Outpatient (CLI) | payer MEDICARE, OTHER, SELFPAY ==
--- NOTE | 2021-10-19 14:57 | US_ITS ---
STUDY: SUPERFICIAL ULTRASOUND - LEFT LOWER BACK. REASON FOR EXAM: Male, 76 years old. SOFT TISSUE MASS TECHNIQUE: A superficial ultrasound was performed with real-time and static adrian-scale imaging. COMPARISON: None. FINDINGS: Targeted ultrasound was performed. No sonographic abnormality is seen. US/Ext Non Vasc Limited/Soft Tiss IMPRESSION: No sonographic abnormality is seen. Electronically Signed: Castillo Coleman MD at 15:27 EDT ,
== END 2021-10-19 23:59 | disposition home or self-care (01) ==
LOC: US 14:55
PROVIDERS: PCP Internal Medicine; Visit Provider Internal Medicine
DX: M79.89 Other specified soft tissue disorders (principal)
CPT/HCPCS: 76882

== ENCOUNTER 2021-10-30 12:49 | Outpatient (CLI) | payer MEDICARE, OTHER, SELFPAY ==
--- NOTE | 2021-10-30 12:51 | CT_ITS ---
INDICATION: see below EXAMINATION: CT CHEST WITH CONTRAST - CT Chest W/ Contrast Injection TECHNIQUE: Helically acquired images were obtained of the chest following IV contrast. A radiation dose optimization technique was used for this scan. IV Contrast dosage and agent: 100 mL of ISOVUE 300 COMPARISON: 05/24/2020 and 10/28/2020.. FINDINGS: LUNGS, PLEURA AND LARGE AIRWAYS: Pleural-based soft tissue reaction is visualized in the inferior posterior right lower lobe seen on axial series 2 image 99 measuring 2.5 x 2.0 cm. Mild prominence of the bronchovascular interstitial lung markings is visualized, bronchial wall thickening is visualized. A 0.6 cm nodule is visualized in the superior medial aspect of the right middle lobe visualized on axial series 4 image 60, this demonstrates no significant change in comparison to the prior study obtained on 10/28/2020.. THYROID: No thyroid lesions. HEART AND PERICARDIUM: Heart size is normal. No pericardial effusion. VESSELS: Thoracic aorta demonstrates mild ectasia measuring 4.2 cm demonstrating no significant change in comparison to the prior study. No aortic dissection. No obvious central pulmonary embolism although this study was not performed with the pulmonary embolism protocol. MEDIASTINUM AND RAMU: Prominent hilar mediastinal lymphadenopathy is visualized.. Esophagus is unremarkable. No hiatal hernia. UPPER ABDOMEN: Small type I hiatus hernia seen. Low-attenuation lesion/cyst visualized in the dome of the liver demonstrates no significant change in comparison to the prior study. BONES: Degenerative bone changes seen. No suspicious lytic or blastic abnormality. CT/Chest WITH Contrast IMPRESSION: No evidence of acute cardiopulmonary disease. 0.6 cm nodule is visualized in the superior medial aspect of the right middle lobe demonstrates no significant change in comparison to the prior study obtained on 10/28/2020. Bronchial wall thickening and mild interstitial prominence suggestive of bronchitis or airway disease/asthma. Electronically Signed: Bryant Hernandez MD at 16:40 EDT Reading Location ID and State: [facility] / [place] Tel , Service support ,
== END 2021-10-30 23:59 | disposition home or self-care (01) ==
LOC: CT 12:50
PROVIDERS: PCP Internal Medicine; Referring Provider Internal Medicine Cardiovascular Disease; Visit Provider Internal Medicine Cardiovascular Disease
DX: I71.2 Thoracic aortic aneurysm, without rupture (principal)
CPT/HCPCS: 71260; Q9967

== ENCOUNTER → 2021-11-06 | Outpatient (CLI) | payer MEDICARE, OTHER, SELFPAY | END | disposition home or self-care (01) | PROVIDERS: PCP Internal Medicine; Referring Provider Internal Medicine; Visit Provider Internal Medicine | DX: I49.3 Ventricular premature depolarization (principal) | CPT/HCPCS: 93225; 93226 ==

== ENCOUNTER → 2022-05-07 | Outpatient (CLI) | payer MEDICARE, OTHER, SELFPAY ==
--- NOTE | 2022-05-07 11:39 | RAD_ITS ---
STUDY: X-RAY CHEST REASON FOR EXAM: Male, 77 years old. postive COVID, wheezing, cough -- postive COVID, wheezing, cough TECHNIQUE: XR Chest 2 Views COMPARISON: 07.24.19 FINDINGS: Normal visualized aortic arch and descending thoracic aorta. There are diffuse degenerative changes of the visualized thoracic spine. There is degenerative osteoarthritis of the bilateral shoulders. There is no demonstrated pleural abnormality. Normal size heart. Normal mediastinum and art. Normal visualized pulmonary arteries. There is no demonstrated abnormality of the visualized soft tissue structures of the upper abdomen. RAD/Chest PA and Lateral IMPRESSION: There are no acute findings. Electronically Signed: Kevin Jenkins MD at 17:05 EDT ,
== END | disposition home or self-care (01) ==
LOC: RAD 11:38
PROVIDERS: PCP Internal Medicine; Referring Provider Internal Medicine; Visit Provider Internal Medicine
DX: R06.2 Wheezing (principal)
CPT/HCPCS: 71046

== ENCOUNTER 2022-05-08 14:25 | Outpatient (CLI) | payer MEDICARE, OTHER, SELFPAY ==
[2022-05-08 14:39] VITALS: BP 143/82; PULSE 60; RESP 18; TEMP 36.4; O2SAT 99; BMI 28.9
[2022-05-08] MEDS: 0.9% Saline Lock 10 ML Syringe IV ×3 (14:46→15:04)
[2022-05-08] MEDS: BEBTELOVIMAB 175 MG/2 ML VIAL IV (15:00)
[2022-05-08 15:30] VITALS: BP 142/84; PULSE 51; RESP 18; TEMP 36.7; O2SAT 97
[2022-05-08 16:02] VITALS: BP 149/80; PULSE 46; RESP 18; TEMP 36.5; O2SAT 98
== END 2022-05-08 16:00 | disposition home or self-care (01) ==
LOC: MS3OUT 14:25 → MS2 14:26
PROVIDERS: PCP Internal Medicine; Referring Provider Internal Medicine Pulmonary Disease; Visit Provider Internal Medicine Pulmonary Disease
DX: U07.1 COVID-19 (principal)
CPT/HCPCS: M0222; Q0222; A4216

== ENCOUNTER 2022-10-13 13:29 | Emergency (ER) | payer MEDICARE, OTHER, SELFPAY ==
[2022-10-13 13:33] VITALS: BP 163/98; PULSE 87; RESP 18; TEMP 36.8; O2SAT 96; BMI 30.2
--- NOTE | 2022-10-13 13:54 | EKG12_ITS ---
Test Reason : CP Blood Pressure : / mmHG Vent. Rate : 086 BPM Atrial Rate : 086 BPM P-R Int : 180 ms QRS Dur : 096 ms QT Int : 354 ms P-R-T Axes : 039 -17 001 degrees QTc Int : 423 ms Normal sinus rhythm Normal ECG Confirmed by MIKE CARTAGENA, KRISTAL ([id number]), pictures editor LIEN [employer] ([id number]) on 10/15/2022 11:17:16 AM Referred By: IDA Confirmed By:ABRIL MCKEON MD
--- NOTE | 2022-10-13 13:54 | RAD_ITS ---
STUDY: X-RAY CHEST REASON FOR EXAM: Male, 77 years old. chest pain TECHNIQUE: Single AP portable view of the chest. COMPARISON: May 07, 2022 FINDINGS: The lungs are clear and expanded. There is no demonstrated pleural abnormality. Normal size heart. Normal mediastinum and art. Normal visualized pulmonary arteries. There is atherosclerotic calcification of the aortic arch with tortuosity. There are diffuse degenerative changes of the visualized thoracic spine. Normal visualized ribs, clavicles, and shoulders. There is no demonstrated abnormality of the visualized soft tissue structures of the upper abdomen. RAD/Chest 1 View (Portable) IMPRESSION: Electronically Signed: Tommy Bardales MD at 14:56 EDT ,
[2022-10-13] MEDS: Aspirin 81 MG TAB.CHEW 324 MG PO (14:03)
[2022-10-13 14:11] LABS: Absolute Lymphocyte Count 1.55 X10^3/uL (0.83-4.51); Absolute Neutrophil Count 4.2 X10^3/uL (2.0-7.7); Basophil# 0.05 X10^3/uL; Basophil% 0.8 % (0-1); Eosinophil# 0.17 X10^3/uL; Eosinophils% 2.6 % (0-5); Hematocrit 44.6 % (40-54); Hemoglobin 15.4 g/dL (13.0-16.5); Lymphocyte # 1.55 X10^3/ul (0.83-4.51); Mean Corp Hgb Conc 34.5 g/dL (32-36); Mean Corpuscular Hgb 33.3 pg (27.0-32.0); Mean Corpuscular Volume 96.3 fL (80-94); Mean Platelet Vol. 8.9 fl (6.2-12.0); Monocyte# 0.46 X10^3/uL; Monocyte% 7.1 % (0-10); NRBC Flagged by Analyzer 0 % (0-5); Neutrophil # 4.23 X10^3/uL (2.7-7.7); Neutrophil % 65.3 % (47-70); Platelet Count 197 K/mm3 (150-450); RBC Distribution Width CV 12.1 % (11.6-14.6); RBC Distribution Width SD 42.8 fl (35.1-43.9); Red Blood Count 4.63 M/mm3 (4.6-6.2); White Blood Count 6.5 K/mm3 (4.4-11.0)
[2022-10-13 14:14] VITALS: O2SAT 95
--- NOTE | 2022-10-13 14:27 | ED.VIS.CHEST ---
HPI History of Present Illness Chief Complaint: Chest Pain Narrative Narrative: 77-year-old male presenting today with chest pain. He states on the right side of his chest. It hurts when he takes a deep breath. 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 He states that he had a knee problem which he did address and Compression on his right knee and eventually developed a DVT. Previously on blood thinners but not currently. Patient states that he did recently travel to [place] by car. He denies any calf or leg swelling. No pain in his calves or legs. He does states that he has a history of a thoracic aortic aneurysm. He states he does not feel like his chest pain is ripping or tearing and it feels like aching on the right side only. He also does relate that he lifted a couple of 25 pound boxes yesterday which she typically would not do. Patient also reports that he was checking his heart rate because his heart rate usually rested about 60 bpm and he noticed that he was as high as 107 today which was abnormal for him. 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) Hyperlipemia Non-rheumatic mitral regurgitation Nonrheumatic mitral (valve) prolapse Paroxysmal atrial tachycardia Thoracic aortic aneurysm without rupture Home Medications aspirin 81 mg tablet,delayed release 81 mg PO DAILY 04/28/18 [History Last Taken 04/27/21] atorvastatin 10 mg tablet 10 mg PO DAILY 04/28/18 [History Last Taken 04/27/21] cholecalciferol (vitamin D3) 125 mcg (5,000 unit) tablet 5,000 unit PO DAILY 04/28/18 [History Last Taken Unknown] omega-3 fatty acids 500 mg capsule 500 mg PO DAILY 04/28/18 [History Last Taken 04/27/21] tadalafil 20 mg tablet (Cialis) 20 mg PO DAILY PRN OTHER 04/28/18 [History Last Taken Unknown] albuterol sulfate 90 mcg/actuation aerosol inhaler (ProAir HFA) 1 puff inhalation Q6H PRN Sob &/Or Wheezing 04/30/18 [History Last Taken Unknown] hyoscyamine sulfate 0.125 mg tablet 0.125 mg PO BID 04/30/18 [History Last Taken 04/27/21] buspirone 10 mg tablet 10 mg PO DAILY 02/12/19 [History Last Taken 04/27/21] diclofenac sodium 1 % topical gel 2 g topical ONCE PRN OTHER 02/12/19 [History Last Taken Unknown] ibuprofen 200 mg capsule 200 mg PO Q6H PRN Pain Or Fever 02/12/19 [History Last Taken Unknown] hydrocortisone acetate 25 mg rectal suppository 25 mg ND PRN PRN Constipation 11/22/19 [History Last Taken Unknown] clobetasol 0.05 % topical cream 1 applic topical DAILY PRN cream 11/23/20 [History Last Taken Unknown] losartan 50 mg tablet 50 mg PO DAILY 11/23/20 [History Last Taken 04/27/21] fluticasone propionate 220 mcg/actuation HFA aerosol inhaler (Flovent HFA) 1 puff inhalation DAILY 11/13/21 [History Last Taken Unknown] fluticasone propionate 50 mcg/actuation nasal spray,suspension (Allergy Relief (fluticasone)) 1 spray intranasal DAILY 11/13/21 [History Last Taken Unknown] montelukast 10 mg tablet (Singulair) 10 mg PO DAILY 11/13/21 [History Last Taken Unknown] zinc 50 mg tablet 50 mg PO DAILY 11/13/21 [History Last Taken Unknown] Allergy/AdvReac Type Severity Reaction Status Date / Time azithromycin AdvReac Diarrhea Verified 10/13/22 13:34 [From Zithromax Z-Nithin] erythromycin base AdvReac Diarrhea Verified 10/13/22 13:34 [Erythromycin Base] Penicillins AdvReac Diarrhea Verified 10/13/22 13:34 Family History Mother Hypertension Surgical History History of Achilles tendon repair History of arthroscopic knee surgery History of back surgery Social History Smoking Status: Never smoker alcohol intake: current ROS ROS ED Constitutional Constitutional ED: Denies chills or fever(s) Eyes Eyes: Denies change in vision or diplopia ENT ENT ED: Denies rhinorrhea or sore throat Cardiovascular Cardiovascular: Reports as per HPI Respiratory/Chest Respiratory/Chest: Denies cough or dyspnea Gastrointestinal Gastrointestinal: Denies abdominal pain or constipation Genitourinary Genitourinary ED: Denies dysuria or hematuria Musculoskeletal Musculoskeletal: Denies arthralgias or back pain Integumentary Denies abscess or Abrasions Neurologic Neurologic: Denies headache(s) or paresthesias EXAM Physical Exam Const Vital Signs: 10/13/22 13:33 10/13/22 14:14 10/13/22 14:46 Temperature 98.3 F Temperature Source Temporal Pulse Rate 87 74 Respiratory Rate 18 18 Blood Pressure 163/98 H 144/101 H Blood Pressure Mean 119 115 Pulse Ox 96 95 95 Oxygen Delivery Method Room Air Room Air Room Air 10/13/22 15:06 Temperature Temperature Source Pulse Rate 72 Respiratory Rate 12 Blood Pressure 139/96 H Blood Pressure Mean 110 Pulse Ox 93 Oxygen Delivery Method Room Air Positive well nourished HEENT Reports TM's clear and moist mucous membranes Tympanic Membrane ED: Yes TM's clear Eyes PERRL and EOMs intact bilaterally Chest Wall inspection of chest normal and palpation of chest normal Resp normal respiratory effort and clear to auscultation bilaterally Auscultation: Negative for rales, rhonchi or wheezes Cardio regular rate and regular rhythm Neuro oriented x3 and CN's II-XII intact bilaterally Sensorium / Orientation: awake and alert Motor Exam: strength 5/5 throughout Psych mental status grossly normal Skin no rashes or lesions noted and no wounds Heart Score History: Slightly/Non-Suspicious ECG: Normal Age: >/= 65 years Risk Factors: >/= 3 Risk Factors or History of CAD Score: 4 MDM MDM MDM Narrative Medical decision making narrative: 77-year-old male presenting with chest pain on the right side of his chest. Differential includes but is not limited to ACS, PE, aortic dissection, pneumonia, muscle strain, costochondritis. Patient currently PERC negative but states he was tachycardic earlier and he is describing pain with deep inspiration. He has a history of DVT which he provoked himself but I will obtain a D-dimer. CBC to assess white blood cell count, hemoglobin, lites, differential. BMP to assess renal function, electrolytes, glucose, anion gap. High-sensitivity troponin will be obtained as well as EKG and chest x-ray. Patient does have history of aortic aneurysm but is not describing ripping or tearing pain. Its only pain on the right side. If his chest x-ray does not show any new changes such as a widened mediastinum and his D-dimer is negative we will hold off on CTA. EKG on my interpretation shows a normal sinus rhythm with a ventricular rate of 80 bpm without sign of ischemic change or dysrhythmia. Chest x-ray my interpretation shows no acute cardiopulmonary process. I do not see any widened mediastinum. CBC and BMP within normal limits. D-dimer negative at 0.59 when age-adjusted. Initial troponin came back 9. Delta troponin is pending. I suspect this will be within normal limits. I suspect patient will likely go home. Patient was signed out to incoming ED physician for follow-up on delta troponin. Impression: 1. Chest pain Lab Data Attestation: I reviewed the patient's lab results. Labs: Laboratory Results - last 24 hr 10/13/22 10/13/22 10/13/22 13:40 13:40 13:40 WBC 6.5 RBC 4.63 Hgb 15.4 Hct 44.6 MCV 96.3 H MCH 33.3 H MCHC 34.5 RDW Std Deviation 42.8 RDW Coeff of Zoltan 12.1 Plt Count 197 MPV 8.9 Immature Gran % (Auto) 0.200 Neut % (Auto) 65.3 Lymph % (Auto) 24.0 [place] % (Auto) 7.1 Eos % (Auto) 2.6 Baso % (Auto) 0.8 Absolute Neuts (auto) 4.2 Absolute Lymphs (auto) 1.55 Nucleated RBC % 0 D-Dimer Quant (PE/DVT) 0.59 H* Sodium 136 Potassium 3.9 Chloride 106 Carbon Dioxide 25.0 Anion Gap 5 BUN 11 Creatinine 1.01 Estim Creat Clear Calc 63.19 Est GFR (MDRD) Af Amer 93 Est GFR (MDRD) Non-Af 76 BUN/Creatinine Ratio 10.9 Glucose 97 Calcium 9.5 Troponin I High Sens 9 10/13/22 16:20 WBC RBC Hgb Hct MCV MCH MCHC RDW Std Deviation RDW Coeff of Zoltan Plt Count MPV Immature Gran % (Auto) Neut % (Auto) Lymph % (Auto) [place] % (Auto) Eos % (Auto) Baso % (Auto) Absolute Neuts (auto) Absolute Lymphs (auto) Nucleated RBC % D-Dimer Quant (PE/DVT) Sodium Potassium Chloride Carbon Dioxide Anion Gap BUN Creatinine Estim Creat Clear Calc Est GFR (MDRD) Af Amer Est GFR (MDRD) Non-Af BUN/Creatinine Ratio Glucose Calcium Troponin I High Sens 11 Radiography Diagnostic Testing: Clinical Impression(s) from Imaging Studies Chest X-Ray 10/13/22 13:54 IMPRESSION: Electronically Signed: Tommy Bardales MD at 14:56 EDT Reading Location ID and State: [address] [place] [address] , Service support , Discharge Plan Triage Chief Complaint: Chest Pain ED Provider: José Oakley Dx/Rx/DC Orders Instructions: ED Chest Pain, Noncardiac Prescriptions: No Action hyoscyamine sulfate 0.125 MG Tablet 0.125 mg PO BID ProAir HFA 90 mcg/actuation HFA aerosol inhaler 1 puff INHALATION Q6H PRN (Reason: Sob &/Or Wheezing) buspirone 10 mg tablet 10 mg PO DAILY atorvastatin 10 mg tablet 10 mg PO DAILY aspirin 81 mg tablet,delayed release (DR/EC) 81 mg PO DAILY omega-3 fatty acids 500 mg capsule 500 mg PO DAILY cholecalciferol (vitamin D3) 1,000 UNIT Tablet 5,000 unit PO DAILY Cialis 20 mg tablet 20 mg PO DAILY PRN (Reason: OTHER) diclofenac sodium 1 % gel 2 g TOPICAL ONCE PRN (Reason: OTHER) ibuprofen 200 mg capsule 200 mg PO Q6H PRN (Reason: Pain Or Fever) losartan 50 mg tablet 50 mg PO DAILY clobetasol 0.05 % cream 1 applic topical DAILY PRN (Reason: cream) zinc 50 mg tablet 50 mg PO DAILY Flovent HFA 220 mcg/actuation HFA aerosol inhaler 1 puff inhalation DAILY montelukast [Singulair] 10 mg tablet 10 mg PO DAILY fluticasone propionate [Allergy Relief (fluticasone)] 50 mcg/actuation spray,suspension 1 spray intranasal DAILY Rx Instructions: administer into each nostril hydrocortisone acetate 25 MG suppository 25 mg ND PRN PRN (Reason: Constipation) Primary Care Provider: Love Valencia Referrals: Love Valencia, [Primary Care Provider] - Disposition Disposition: Home, Self Care
[2022-10-13 14:28] LABS: Anion Gap 5 (5-15); BUN 11 mg/dL (7-18); BUN/Creat Ratio 10.9 RATIO (10-20); Calcium,Total 9.5 mg/dL (8.5-10.1); Chloride 106 mmol/L (98-107); Creatinine, Serum 1.01 mg/dL (0.70-1.30); EST Glomerular Filtration Rate 76 mL/min (>60); Est Glom Filt Rate - Afr Amer 93 mL/min (>60); Estimated Creatinine Clearance 63.19 ml/min; Glucose 97 mg/dL (74-106); Potassium 3.9 mmol/L (3.5-5.1); Sodium Level 136 mmol/L (136-145); Troponin-I HS (w/2H Reflex) 9 pg/mL (3.0-78.0)
[2022-10-13 14:46] VITALS: BP 144/101; PULSE 74; RESP 18; O2SAT 95
[2022-10-13 14:53] LABS: D-Dimer Quantitative (DVT/PE) 0.59 FEU/ug/m (0.27-0.49)
[2022-10-13 15:06] VITALS: BP 139/96; PULSE 72; RESP 12; O2SAT 93
[2022-10-13 16:07] LABS: Reflex Troponin-HS? (from REC) Y
[2022-10-13 17:08] LABS: Troponin-I HS 11 pg/mL (3.0-78.0)
== END 2022-10-13 17:19 | disposition home or self-care (01) ==
PROVIDERS: Emergency Provider Student in an Organized Health Care Education/Training Program; PCP Internal Medicine; Visit Provider Student in an Organized Health Care Education/Training Program
DX: R07.9 Chest pain, unspecified (principal); I25.10 Atherosclerotic heart disease of native coronary artery without angina pectoris; E78.5 Hyperlipidemia, unspecified; Z86.718 Personal history of other venous thrombosis and embolism; Z79.82 Long term (current) use of aspirin; J45.909 Unspecified asthma, uncomplicated; Z79.899 Other long term (current) drug therapy; Z79.1 Long term (current) use of non-steroidal anti-inflammatories (NSAID); Z79.52 Long term (current) use of systemic steroids
CPT/HCPCS: 71045; 80048; 84484; 85025; 85379; 93005; 99285; A4216

== ENCOUNTER → 2022-11-05 | Outpatient (CLI) | payer MEDICARE, OTHER, SELFPAY ==
--- NOTE | 2022-11-05 14:47 | CT_ITS ---
EXAM: CT ANGIOGRAPHY CHEST WITHOUT AND WITH INTRAVENOUS CONTRAST CLINICAL INDICATION: thoracic aortic aneursym TECHNIQUE: Helically acquired angiography images were obtained of the chest without and with intravenous contrast. CTDIvol = ( 16.40 ) mGy, DLP = ( 907.64 ) mGycm This CT exam was performed using one or more of the following dose reduction techniques: automated exposure control, adjustment of the mA and/or kV according to patient size, and/or use of iterative reconstruction technique. This report was created using [employer] report generation technology. MIP reconstructed images were created and reviewed. CONTRAST: IV 100mL Isovue-370 COMPARISON: October 30, 2021 FINDINGS: PULMONARY ARTERIES: Unremarkable. Normal in caliber. No evidence of pulmonary embolism. No PE. AORTA: 4.5 cm ascending thoracic aortic aneurysm (medial to lateral); this is unchanged from the prior study. No aortic dissection. GREAT VESSELS OF AORTIC ARCH: Unremarkable. Normal in caliber. No evidence of dissection. LUNGS AND PLEURAL SPACES: 6 mm nodule at the medial aspect of the right middle lobe is unchanged dating back to October 18, 2020. Long-standing stability indicates a benign process. Mild dependent atelectasis at the posterior lower lobes. No consolidation. No pleural effusion or pneumothorax. Calcified granuloma at the right apex. Other small scattered calcified granulomas. HEART: Unremarkable. Heart size is normal. No pericardial effusion. No significant coronary artery calcifications. MEDIASTINUM: Unremarkable. No mediastinal or hilar adenopathy. Esophagus is unremarkable. No hiatal hernia. THYROID: Unremarkable. No thyroid lesions. BONES/JOINTS: Unremarkable. No suspicious lytic or blastic abnormality. CT/CTA Chest W/WO Contrast IMPRESSION: Unchanged 4.5 cm ascending thoracic aortic aneurysm (medial to lateral). No acute or inflammatory disease or bowel obstruction. 6 mm nodule at the medial aspect of the right middle lobe is unchanged dating back to October 18, 2020. Long-standing stability indicates a benign process. Ancillary findings as above. Electronically Signed: Kareem Vilchis MD at 4:44 EDT ,
== END | disposition home or self-care (01) ==
LOC: CT 14:44
PROVIDERS: PCP Internal Medicine; Referring Provider Internal Medicine Cardiovascular Disease; Visit Provider Internal Medicine Cardiovascular Disease
DX: I71.20 Thoracic aortic aneurysm, without rupture, unspecified (principal)
CPT/HCPCS: 71275; Q9967

== ENCOUNTER → 2023-02-20 | Outpatient (CLI) | payer MEDICARE, OTHER, SELFPAY ==
--- NOTE | 2023-02-20 16:25 | RAD_ITS ---
INDICATION: ABD PAIN EXAMINATION/TECHNIQUE: X-RAY - XR Abdomen W/ Decub and/or Erect Views COMPARISON: None. FINDINGS: BOWEL GAS PATTERN: Non-obstructive. No bowel or stomach distention. FREE AIR: Not assessed on a single supine view. ORGANOMEGALY: Not seen. CALCIFICATIONS: No abnormal calcifications observed. LOWER CHEST: No acute pathology. BONES AND SOFT TISSUES: Degenerative changes and levoscoliosis of the lumbar spine. RAD/Abd Inc Decub and/or Erect IMPRESSION: Non-obstructive bowel gas pattern. Electronically Signed: Herbert Castellanos MD at 10:00 EDT ,
== END | disposition home or self-care (01) ==
PROVIDERS: PCP Internal Medicine; Referring Provider Internal Medicine Gastroenterology; Visit Provider Internal Medicine Gastroenterology
DX: R10.9 Unspecified abdominal pain (principal)
CPT/HCPCS: 74019

== ENCOUNTER → 2023-03-13 | Outpatient (CLI) | payer MEDICARE, OTHER, SELFPAY ==
--- NOTE | 2023-03-13 13:15 | CT_ITS ---
STUDY: CT ABDOMEN AND PELVIS WITH CONTRAST - URINARY TRACT REASON FOR EXAM: Male, 78 years old. abdominal pressure, has also been following Dr. nelson RADIATION DOSAGE (If Supplied By Facility): CTDIvol = ( 9.81 ) mGy, DLP = ( 644.97 ) mGycm TECHNIQUE: Oral and amp; IV Redi-CAT and amp; 100mL Isovue-300 was administered. Transaxial images were obtained from the dome of the diaphragm to the symphysis pubis in the arterial, nephrographic and excretory phases. Multiplanar coronal and sagittal images were reformatted. Individualized Dose Optimization Techniques Were Used For This CT. COMPARISON: 01/28/2021. FINDINGS: Right lower lobe atelectasis with scarring, with subtle soft tissue density, compatible with benign process given the stability in the interval. Normal cardiac size with mild coronary artery calcifications. Small low-attenuation structures within the left liver lobe, largest measuring 3.5 mm, too small to characterize and likely benign process such as cysts in the absence of known neoplasm. Normal gallbladder and extrahepatic biliary system. Normal spleen. Normal pancreas. Normal bilateral adrenal glands. Normal visualized stomach. Normal small intestine. Mild diverticulosis with no signs of diverticulitis. The appendix is visualized and appears normal. Normal abdominal aorta. No retroperitoneal adenopathy. Right mid upper renal pole simple cyst measuring 1 cm. Otherwise normal right kidney. Normal left kidney. Normal urinary bladder. Mild prostate enlargement. Normal abdominal wall. Scoliosis of the lumbar spine with convexity to the left along with advanced degenerative disease. CT/Abdomen/Pelvis WITH Contrast IMPRESSION: Mild diverticulosis with no signs of diverticulitis. No acute appendicitis or bowel obstruction. Small simple cyst involving the right upper kidney, otherwise unremarkable abdominal viscera. Electronically Signed: Amber Raymundo MD at 19:42 EDT ,
[2023-03-13 13:53] LABS: CREATININE FINGERSTICK 1.3 mg/dL (0.70-1.30)
== END | disposition home or self-care (01) ==
LOC: CT 13:14
PROVIDERS: PCP Internal Medicine; Referring Provider Internal Medicine; Visit Provider Internal Medicine
DX: R10.9 Unspecified abdominal pain (principal)
CPT/HCPCS: 74177; Q9967

== ENCOUNTER → 2023-03-26 | Outpatient (CLI) | payer MEDICARE, OTHER, SELFPAY ==
[2023-03-26 11:11] LABS: Troponin-I HS 7 pg/mL (3.0-78.0)
== END | disposition home or self-care (01) ==
LOC: LABSPEC 10:47
PROVIDERS: PCP Internal Medicine; Referring Provider Internal Medicine; Visit Provider Internal Medicine
DX: R07.89 Other chest pain (principal)
CPT/HCPCS: 84484

== ENCOUNTER → 2023-06-24 | Outpatient (CLI) | payer MEDICARE, OTHER, SELFPAY ==
--- NOTE | 2023-06-24 12:42 | ECHOD_ITS ---
Reason For Study: Mitral Valve Prolapse Procedure This was a 2D Doppler, Color Flow transthoracic echocardiogram. Exam performed in department. Left Ventricle Normal LV size. The estimated ejection fraction is 60 %. No evidence for diastolic dysfunction. No regional wall motion abnormalities noted. Right Ventricle Normal RV size. Normal systolic function. Atria Normal left atrium. Normal right atrium. No doppler evidence for ASD. Mitral Valve There is no mitral valve stenosis. Trivial mitral valve insufficiency. Tricuspid Valve There is no tricuspid stenosis. Trivial tricuspid valve insufficiency. Pulmonary artery systolic pressure is 30 mmHg. Aortic Valve Trisinus/trileaflet aortic valve. Aortic sclerosis, no stenosis. There is no aortic stenosis. No aortic valve insufficiency. Pulmonic Valve There is no pulmonic valvular stenosis. Trivial pulmonic valve insufficiency. Great Vessels Normal aortic root. Pericardium/Pleural No pericardial effusion. MMode/2D Measurements & Calculations LVIDd: 5.3 cm IVSd: 0.97 cm Ao root diam: 3.9 cm LVIDs: 3.3 cm LVPWd: 0.88 cm LA dimension: 3.6 cm RVDd: 3.2 cm FS: 37.3 % LAV(MOD-bp): 51.7 ml LA A4 area: 18.0 cm2 TAPSE: 1.8 cm LAV(MOD-bp) Indexed: 25.0 ml/m2 LAV(MOD-sp2): 44.3 ml LAV(MOD-sp4): 43.2 ml Time Measurements MV dec time: 0.35 sec Doppler Measurements & Calculations MV E max renny: 50.3 cm/sec Lat Peak E' Renny: 5.2 cm/sec Med Peak E' Renny: 5.6 cm/sec MV A max renny: 70.3 cm/sec E/E' lat: 9.7 E/E' med: 9.0 MV E/A: 0.72 MV V2 max: 78.4 cm/sec MV P1/2t max renny: 52.3 cm/sec Ao V2 max: 150.4 cm/sec MV max P.5 mmHg MV P1/2t: 112.7 msec Ao max P.1 mmHg MV V2 mean: 35.9 cm/sec MV dec slope: 135.9 cm/sec2 Ao V2 mean: 106.1 cm/sec MV mean P.60 mmHg MVA(P1/2t): 2.0 cm2 Ao mean P.2 mmHg MV V2 VTI: 26.9 cm Ao V2 VTI: 34.4 cm AV (velocity ratio): 0.66 LV V1 max: 104.7 cm/sec PA V2 max: 93.0 cm/sec PI end-d renny: 115.8 cm/sec LV V1 max P.4 mmHg LV V1 mean P.3 mmHg LV V1 mean: 69.3 cm/sec LV V1 VTI: 22.9 cm TR max renny: 251.3 cm/sec TR max P.3 mmHg ECHO/Echo Complete Interpretation Summary The estimated ejection fraction is 60 %. No evidence for diastolic dysfunction. Trivial mitral valve insufficiency. Ordering Physician: Love Valencia Referring Physician: Love Valencia Performed By: Russell Gardiner RCS
== END | disposition home or self-care (01) ==
LOC: CVS 12:41
PROVIDERS: PCP Internal Medicine; Referring Provider Internal Medicine; Visit Provider Internal Medicine
DX: I34.1 Nonrheumatic mitral (valve) prolapse (principal)
CPT/HCPCS: 93306

== ENCOUNTER → 2023-07-26 | Outpatient (CLI) | payer MEDICARE, OTHER, SELFPAY ==
--- NOTE | 2023-07-26 13:20 | CT_ITS ---
STUDY: CTA CHEST REASON FOR EXAM: Male, 78 years old. Re-evaluate Ascending Aneurysm -- Last scan October 2022 RADIATION DOSAGE (If Supplied By Facility): CTDIvol = ( 17.67 ) mGy, DLP = ( 507.18 ) mGycm TECHNIQUE: The examination was performed with the intravenous administration of IV 100mL Isovue-370. Post-processing of the angiographic images was performed, with multiplanar reformation and 3D reconstruction. Individualized dose optimization techniques were used for this CT. COMPARISON: Comparison is made with prior study dated November 05, 2022. FINDINGS: Normal enhancement of the main pulmonary artery and right and left pulmonary arteries. Normal enhancement of the bilateral peripheral pulmonary arteries. There is no demonstrated pulmonary embolism. There is aneurysmal dilatation of the ascending aorta. The transverse diameter of the ascending aorta measures 46 mm''s. There is no demonstrated aortic dissection. There are calcifications of the coronary arteries. Normal mediastinum. Normal hilar regions. Normal visualized trachea and bronchi. The lungs are well expanded. Stable 6 mm noncalcified nodule in the medial aspect of the right middle lobe as seen on axial image #138. Stable calcified granuloma in the right lung apex. Normal pleura. Normal chest wall structures. There are degenerative changes of thoracic spine. Normal visualized upper abdomen. CT/CTA Chest W/WO Contrast IMPRESSION: Stable examination. Electronically Signed: Castillo Coleman MD at 14:24 EST ,
[2023-07-26 13:55] LABS: CREATININE FINGERSTICK < 1.0 mg/dL (0.70-1.30); EGFR FINGERSTICK > 60.0000 mL/min (>60)
== END | disposition home or self-care (01) ==
LOC: CT 13:17
PROVIDERS: PCP Internal Medicine; Referring Provider Nurse Practitioner Family; Visit Provider Nurse Practitioner Family
DX: I71.20 Thoracic aortic aneurysm, without rupture, unspecified (principal)
CPT/HCPCS: 71275; Q9967

== ENCOUNTER → 2023-10-11 | Outpatient (CLI) | payer MEDICARE, OTHER, SELFPAY ==
[2023-10-11 12:37] LABS: Bacteria 0 SEEN /hpf (None Seen); Mucous, Urine 0 SEEN /hpf (<or=2+); Red Blood Cells-Urine 0 SEEN /hpf (0-5); Squamous Epithelial Cells - UA 0 SEEN /hpf (0-5); White Blood Cells 0 SEEN /hpf (0-5)
[2023-10-11 12:44] LABS: Absolute Lymphocyte Count 1.76 X10^3/uL (0.83-4.51); Absolute Neutrophil Count 2.4 X10^3/uL (2.0-7.7); Basophil# 0.05 X10^3/uL; Eosinophil# 0.22 X10^3/uL; Eosinophils% 4.6 % (0-5); Hematocrit 42.4 % (40-54); Hemoglobin 14.5 g/dL (13.0-16.5); Lymphocyte # 1.76 X10^3/ul (0.83-4.51); Lymphocyte % 36.5 % (19-41); Mean Corp Hgb Conc 34.2 g/dL (32-36); Mean Corpuscular Hgb 33.1 pg (27.0-32.0); Mean Corpuscular Volume 96.8 fL (80-94); Mean Platelet Vol. 9.1 fl (6.2-12.0); Monocyte# 0.41 X10^3/uL; Monocyte% 8.5 % (0-10); NRBC Flagged by Analyzer 0 % (0-5); Neutrophil # 2.37 X10^3/uL (2.7-7.7); Neutrophil % 49.2 % (47-70); Platelet Count 174 K/mm3 (150-450); RBC Distribution Width CV 12.2 % (11.6-14.6); RBC Distribution Width SD 43.6 fl (35.1-43.9); Red Blood Count 4.38 M/mm3 (4.6-6.2); White Blood Count 4.8 K/mm3 (4.4-11.0)
[2023-10-11 13:11] LABS: ALB/GLOB Ratio 1.3 RATIO (0.9-2.4); AST(SGOT) 26 U/L (15-37); Alanine Aminotransfer ALT/SGPT 40 U/L (16-61); Albumin, Serum 3.8 g/dL (3.2-5.0); Alkaline Phosphatase 95 U/L (45-117); Anion Gap 5 (5-15); BUN 12 mg/dL (7-18); Calcium,Total 9.3 mg/dL (8.5-10.1); Chloride 106 mmol/L (98-107); EST Glomerular Filtration Rate 77 mL/min (>60); Est Glom Filt Rate - Afr Amer 93 mL/min (>60); Glucose 92 mg/dL (74-106); Potassium 3.7 mmol/L (3.5-5.1); Protein, Total 6.8 g/dL (6.4-8.2); Sodium Level 138 mmol/L (136-145); Thyroid Stim Hormone (TSH) 1.23 uIU/mL (0.358-3.74); Troponin-I HS 12 pg/mL (3.0-78.0)
[2023-10-11 13:17] LABS: Color, Urine Yellow (Yellow); Glucose, Dipstick Normal (Normal); Ketone-Dipstick Negative (Negative); Leukocyte Esterase-Dipstick Negative /ul (Negative); Nitrite-Dipstick Negative (Negative); Occult Blood-Urine 10 /ul (Negative); Protein-Dipstick Negative (Negative); Urine Bilirubin Dipstick Negative (Negative); Urine Clarity Clear (Clear); Urine Urobilinogen Normal (Normal); Urine pH 6.5 (5.0 - 8.0)
== END | disposition home or self-care (01) ==
LOC: LABSPEC 12:03
PROVIDERS: PCP Internal Medicine; Referring Provider Internal Medicine; Visit Provider Internal Medicine
DX: R07.89 Other chest pain (principal); R19.00 Intra-abdominal and pelvic swelling, mass and lump, unspecified site; I10 Essential (primary) hypertension
CPT/HCPCS: 80053; 81001; 83880; 84443; 84484; 85025

== ENCOUNTER → 2023-10-30 | Outpatient (CLI) | payer MEDICARE, OTHER, SELFPAY ==
--- NOTE | 2023-10-30 09:15 | US_ITS ---
STUDY: ABDOMINAL ULTRASOUND - RIGHT UPPER QUADRANT REASON FOR VISIT: Male, 78 years old focus gallbladder and pancreas ; abdominal swelling and discomfor -- focus gallbladder and pancreas ; abdominal swelling and discomfor TECHNIQUE: Ultrasound evaluation of the right upper quadrant was performed with real-time and static adrian-scale imaging. TECHNICAL QUALITY: Adequate. COMPARISON: CT the chest 07/26/2023, CT of the abdomen 03/13/2023 FINDINGS: Liver: The liver measures 14.6 cm. There is increased echogenicity consistent with fatty infiltration. The bile ducts are within normal limits. There is hepatic color flow. The direction of portal flow is hepatopetal. 2 subcentimeter cysts in the left lobe of the liver. 5 cm oval hypoechoic air within the posterior aspect of the right lobe of the liver felt to likely represent focal sparing. Gallbladder: Normal distended gallbladder. The gallbladder wall measures 2 mm. There is a negative sonographic Harvey''s sign. There is no pericholecystic fluid. There are no gallstones. Common Bile Duct (C.B.D.): The common bile duct measures 5 mm. Pancreas: Normal size of the head, body and tail of the pancreas. There is normal echogenicity of the pancreas. There is no demonstrated pancreatic mass or cyst. Right Kidney: Normal size of the right kidney. The right kidney measures 11.6 cm. Normal renal cortex. The right cortex measures 1.3 cm. 1.2 cm cyst in the upper pole the right kidney. There is no right hydronephrosis. US/Abdomen Limited IMPRESSION: Fatty infiltration of liver with some focal sparing near the chas hepatis. Electronically Signed: Edson Figueroa MD at 22:36 EDT ,
== END | disposition home or self-care (01) ==
LOC: US 09:15
PROVIDERS: PCP Internal Medicine; Referring Provider Internal Medicine; Visit Provider Internal Medicine
DX: R19.00 Intra-abdominal and pelvic swelling, mass and lump, unspecified site (principal)
CPT/HCPCS: 76705

== ENCOUNTER → 2023-12-10 | Outpatient (CLI) | payer MEDICARE, OTHER, SELFPAY ==
--- NOTE | 2023-12-11 17:04 | STRESSREP ---
Stress Test Report Date: 12/10/2023 Procedure: Exercise tolerance test/imaging study Indications: CAD Consent: Per the patient Procedure: The patient exercised on a Joseluis protocol for 8 minutes achieving a peak heart rate of 139 bpm (96% predicted maximal heart rate) with a peak blood pressure 182/82 mmHg and a peak MET capacity of 10.1 METs. The baseline ECG demonstrated normal sinus rhythm. The peak exercise ECG demonstrated no significant ischemic changes. EKG during recovery revealed no significant ischemic changes [There were no cardiac dysrhythmias pretest, during exercise, or recovery]. The functional capacity was considered excellent for age. There was [no complaint of chest discomfort during exercise or recovery]. The examination was discontinued secondary to shortness of breath. Impression: 1. Technically adequate (percent predicted maximal heart rate greater than 85%) exercise tolerance test 2. Stress test is negative for exercise-induced EKG changes of ischemia 3. The test test is negative for exercise-induced chest pain 4. Functional capacity is excellent for age 5. Nuclear images pending Myocardial perfusion imaging study: Technique: The patient was injected with 11.3 mCi of technetium 99m Cardiolite and subsequently rest SPECT Cardiolite nuclear imaging was obtained in the horizontal long, vertical long, and short axis views. The patient exercised on a Joseluis protocol. Please see above for details. The patient was injected with 34.6 mCi of technetium 99m Cardiolite and subsequently stress SPECT Cardiolite nuclear imaging was obtained in the horizontal long, vertical long, and short axis views. A gated Cardiolite study at peak stress was obtained. Interpretation: Rest and stress SPECT Cardiolite nuclear imaging status post realignment, normalization, and attenuation correction, demonstrates no evidence of significant ischemia or infarction. The gated Cardiolite study demonstrates no significant regional wall motion abnormalities. The reported LVEF is 64%. Impression: 1. There is no evidence of significant ischemia or infarction. 2. The gated Cardiolite study reports an LVEF of 64%. This note was generated with [employer] software. It may contain incorrect words, spelling, and punctuation that were not noted in checking the note before signing.
== END | disposition home or self-care (01) ==
LOC: CVS 07:18
PROVIDERS: PCP Internal Medicine; Referring Provider Internal Medicine; Visit Provider Internal Medicine
DX: I25.10 Atherosclerotic heart disease of native coronary artery without angina pectoris (principal)
CPT/HCPCS: 78452; 93017; A9500; A4216

== ENCOUNTER → 2024-05-18 | Outpatient (CLI) | payer MEDICARE, OTHER, SELFPAY ==
--- NOTE | 2024-05-18 16:14 | MRI_ITS ---
EXAM: MR ABDOMEN WITHOUT AND WITH INTRAVENOUS CONTRAST CLINICAL INDICATION: abdominal pain TECHNIQUE: Multiplanar and multisequence MR images of the abdomen without and with intravenous contrast. CONTRAST: IV 19cc Clariscan COMPARISON: CT abdomen and pelvis 03/13/2023 FINDINGS: LOWER THORAX: Small hiatal hernia. No pleural effusion. LIVER: Normal. Normal morphology. No focal mass. GALLBLADDER AND BILE DUCTS: Normal. No gallstones. No gallbladder distention or wall edema. No intra- or extrahepatic biliary ductal dilation. PANCREAS: Normal. No focal cystic or solid mass. SPLEEN: Normal. Normal size without focal cystic or solid mass. ADRENALS: Normal. No nodules. KIDNEYS AND URETERS: Nonenhancing 10 mm complex right renal cortical cyst unchanged in size from prior exam. Normal renal size and position. INTRAPERITONEAL SPACE: Normal. No ascites or other fluid collection. No free air. VASCULATURE: Normal. Abdominal aorta is non-dilated. LYMPH NODES: No enlarged lymph nodes. MRI/MRI Abd WITH and W/O Contrast IMPRESSION: No acute abdominal abnormality. No interval change. Electronically Signed: Aba Solis MD at 16:32 EST ,
[2024-05-18 16:54] LABS: CREATININE FINGERSTICK 1.1 mg/dL (0.70-1.30); EGFR FINGERSTICK > 60.0000 mL/min (>60)
== END | disposition home or self-care (01) ==
PROVIDERS: PCP Internal Medicine; Referring Provider Internal Medicine; Visit Provider Internal Medicine
DX: M25.511 Pain in right shoulder (principal); R10.11 Right upper quadrant pain
CPT/HCPCS: 74183; A9575; A4216

== ENCOUNTER → 2024-05-20 | Outpatient (CLI) | payer MEDICARE, OTHER, SELFPAY | END | disposition home or self-care (01) | LOC: CVS 10:38 | PROVIDERS: PCP Internal Medicine; Referring Provider Internal Medicine; Visit Provider Internal Medicine | DX: M79.661 Pain in right lower leg (principal) | CPT/HCPCS: 93971 ==

== ENCOUNTER 2024-06-29 18:23 | Emergency (ER) | payer MEDICARE, OTHER, SELFPAY ==
[2024-06-29] VITALS (20 sets, daily range): BP systolic 128–171; BP diastolic 91–112; PULSE 68–84; RESP 9–23; TEMP 36.3–36.9; O2SAT 95–98; BMI 28.9
--- NOTE | 2024-06-29 19:10 | EDS_ITS ---
HPI History of Present Illness Chief Complaint: Chest Pain Informant: patient Onset/Context/Timing Onset: Yesterday Activity at onset: gradual Timing: Continuous Quality: Positive for Tightness and - (Squeezing) Location: Substernal, Right Parasternal, Left Parasternal and Left Chest Worsened By: Breathing Relieved By: - (Albuterol) Associated Symptoms: Positive for Dyspnea, Lightheadedness and Acid Reflux; Negative for Nausea, Vomiting, Diaphoresis, Cough, Fever or Palpitations Narrative Narrative: Patient presents with chest pain that began yesterday. Patient reported gradually gotten worse. Patient states this started on the left side of his chest. Patient states yesterday he felt it was more musculoskeletal in nature. Patient states that today it has progressed to the substernal and towards the right chest area. Patient describes it as tightness and squeezing. Patient states it is worse with deep breathing. Patient states he took 2 puffs of his albuterol inhaler which seemed to help. Patient admits to some intermittent shortness of breath and lightheadedness. Patient also admits to an episode of gastroesophageal reflux symptoms yesterday. Patient states he took some Maalox for that which helped. CVD Risk Factors: Positive for Hypertension and Hypercholesterolemia; Negative for Diabetes, Family History 1' </=55 or Smoking PE Risk Factors: Positive for Prior DVT or PE and Cancer; Negative for Recent Travel/Surgery or Recent Immobilization [facility] Medical History Thoracic aortic aneurysm without rupture Asthma History of DVT (deep vein thrombosis) Paroxysmal atrial tachycardia Hyperlipemia Non-rheumatic mitral regurgitation Nonrheumatic mitral (valve) prolapse Atherosclerotic heart disease of [place] coronary artery without angina pectoris Home Medications ?Medication ?Instructions ?Recorded ?Last Taken ?Type aspirin 81 mg tablet,delayed 81 mg PO DAILY 04/28/18 04/27/21 History release atorvastatin 10 mg tablet 10 mg PO DAILY 04/28/18 04/27/21 History albuterol sulfate 90 mcg/actuation 1 puff inhalation Q6H PRN Sob &/Or 04/30/18 Unknown History aerosol inhaler (ProAir HFA) Wheezing hyoscyamine sulfate 0.125 mg tablet 0.125 mg PO BID 04/30/18 04/27/21 History diclofenac sodium 1 % topical gel 2 g topical ONCE PRN OTHER 02/12/19 Unknown History ibuprofen 200 mg capsule 200 mg PO Q6H PRN Pain Or Fever 02/12/19 Unknown History hydrocortisone acetate 25 mg 25 mg [place] PRN PRN Constipation 11/22/19 Unknown History rectal suppository clobetasol 0.05 % topical cream 1 applic topical DAILY PRN cream 11/23/20 Unknown History montelukast 10 mg tablet 10 mg PO DAILY 11/13/21 Unknown History (Singulair) buspirone 10 mg tablet 10 mg PO .COMPLEX 07/01/23 Unknown History cholecalciferol (vitamin D3) 125 5,000 unit PO 6XW 07/01/23 Unknown History mcg (5,000 unit) tablet cinnamon bark extract 500 mg tablet 1,000 mg PO BID 07/01/23 Unknown History fluticasone propionate 110 1 inh inhalation DAILY 07/01/23 Unknown History mcg/actuation HFA aerosol inhaler (Flovent HFA) fluticasone propionate 50 1 spray intranasal DAILY PRN 07/01/23 Unknown History mcg/actuation nasal spray,suspension (Allergy Relief (fluticasone)) guaifenesin 600 mg tablet, 600 mg PO Q12H PRN 07/01/23 Unknown History extended release 12 hr (Mucinex) omega-3 fatty acids 500 mg capsule 1,000 mg PO BID 07/01/23 Unknown History tadalafil 5 mg tablet 5 mg PO DAILY PRN 07/01/23 Unknown History zinc gluconate 30 mg tablet 30 mg PO DAILY 07/01/23 Unknown History amlodipine 5 mg tablet 5 mg PO QDAY 04/07/24 Unknown History losartan 50 mg tablet 100 mg PO DAILY 04/07/24 Unknown History mecobalamin (vitamin B12) 500 mcg 500 mcg PO DAILY 04/07/24 Unknown History chewable tablet Allergy/AdvReac Type Severity Reaction Status Date / Time azithromycin (From Zithromax AdvReac Diarrhea Verified 06/29/24 18:24 Z-Nithin) erythromycin base AdvReac Diarrhea Verified 06/29/24 18:24 (Erythromycin Base) Penicillins AdvReac Diarrhea Verified 06/29/24 18:24 Family History Mother Hypertension Surgical History History of back surgery History of Achilles tendon repair History of arthroscopic knee surgery Social History Smoking Status: Former smoker how long ago did patient quit smokin years ago alcohol intake: current alcohol intake frequency: 0-2 drinks per day Alcohol type: beer and wine substance use type: does not use caffeine: Yes Type: coffee Number of servings: 1 ROS ROS ED Constitutional Constitutional ED: Denies chills or fever(s) Eyes Eyes: Denies blurry vision or change in vision ENT ENT ED: Reports sore throat; Denies rhinorrhea Cardiovascular Cardiovascular: Reports chest pain; Denies palpitations Respiratory/Chest Respiratory/Chest: Denies cough or dyspnea Gastrointestinal Gastrointestinal: Denies nausea or vomiting Genitourinary Genitourinary ED: Reports urinary frequency; Denies dysuria or hematuria Musculoskeletal Musculoskeletal: Reports neck pain; Denies back pain Integumentary Denies abscess or rash Neurologic Neurologic: Denies headache(s) or weakness Allergic/Immunologic Allergic/Immunologic ED: Denies mouth swelling or urticaria EXAM Physical Exam Const Vital Signs: 06/29/24 18:24 06/29/24 19:17 06/29/24 19:20 Temperature 98.4 F Temperature Source Oral Pulse Rate 81 84 Respiratory Rate 16 15 Blood Pressure 128/98 H Blood Pressure Mean 108 Pulse Ox 98 Oxygen Delivery Method Room Air Room Air 06/29/24 19:30 06/29/24 19:45 06/29/24 20:00 Temperature Temperature Source Pulse Rate 83 79 Respiratory Rate 10 L 9 L Blood Pressure 134/108 H 155/98 H Blood Pressure Mean 116 114 Pulse Ox Oxygen Delivery Method 06/29/24 20:15 06/29/24 20:15 06/29/24 20:29 Temperature Temperature Source Pulse Rate 78 76 Respiratory Rate 11 L 20 H Blood Pressure 137/91 H 137/91 H 137/91 H Blood Pressure Mean 106 106 106 Pulse Ox 96 Oxygen Delivery Method Room Air 06/29/24 20:30 06/29/24 20:45 06/29/24 21:00 Temperature Temperature Source Pulse Rate 76 71 74 Respiratory Rate 14 18 11 L Blood Pressure 143/96 H 140/107 H 154/92 H Blood Pressure Mean 112 117 110 Pulse Ox Oxygen Delivery Method 06/29/24 21:15 06/29/24 21:30 06/29/24 21:42 Temperature Temperature Source Pulse Rate 76 74 76 Respiratory Rate 13 16 17 Blood Pressure 155/95 H 154/102 H 171/100 H Blood Pressure Mean 113 116 120 Pulse Ox Oxygen Delivery Method 06/29/24 21:45 06/29/24 22:00 06/29/24 22:15 Temperature Temperature Source Pulse Rate 75 74 68 Respiratory Rate 10 L 15 13 Blood Pressure 150/103 H 156/104 H 147/103 H Blood Pressure Mean 118 121 117 Pulse Ox Oxygen Delivery Method 06/29/24 22:30 06/29/24 22:35 Temperature 97.4 F L Temperature Source Pulse Rate 75 73 Respiratory Rate 15 17 Blood Pressure 166/112 H 166/112 H Blood Pressure Mean 131 130 Pulse Ox 95 Oxygen Delivery Method Positive well nourished and well developed General Appearance ED: well developed and NAD HEENT Reports moist mucous membranes normocephalic and atraumatic Neck supple and no JVD Chest Wall Chest Narrative: There is some tenderness to palpation of the left anterior chest wall. There is no bony crepitance or step-off. There is no subcutaneous emphysema. Resp normal respiratory effort and clear to auscultation bilaterally Cardio regular rate and regular rhythm GI soft to palpation, non-tender and non-distended Extremity normal to inspection General Extremety ED: Negative for edema General Extremity: Negative for edema Neuro oriented x3 and no sensory deficits noted Sensorium / Orientation: awake and alert Motor Exam: strength 5/5 throughout Psych mental status grossly normal Heart Score History: Slightly/Non-Suspicious ECG: Nonspecific Repolarization Age: >/= 65 years Risk Factors: 1 or 2 Risk Factors Troponin: </= Normal Limit Score: 4 MDM MDM MDM Narrative Medical decision making narrative: Differential diagnosis includes cardiac dysrhythmia, cardiac ischemia, pneumonia, pneumothorax, pulmonary embolism, electrolyte abnormality, gastroesophageal reflux disease, musculoskeletal pain, and anxiety. EKG will be obtained to assess for cardiac dysrhythmia and cardiac ischemia. CBC will be obtained to assess for leukocytosis and anemia. Basic metabolic profile will be obtained to assess for electrolyte abnormality and renal function. High- sensitivity troponin will be obtained to assess for cardiac ischemia. D-dimer will be obtained to assess for pulmonary embolism. If the D-dimer is abnormal, CT of the chest will be obtained to assess for pulmonary embolism, pneumonia, pneumothorax. If the D-dimer is normal, chest x-ray will be obtained to assess for pneumonia and pneumothorax. Lab Data Attestation: I reviewed the patient's lab results. Lab results narrative: CBC was reviewed and was within normal limits. Basic metabolic profile was reviewed and was essentially within normal limits. Initial high-sensitivity troponin was reviewed and was normal at 8. 2-hour repeat high-sensitivity troponin was reviewed and was normal at 11. D-dimer was reviewed and was 0.54 which is normal for the patient's age. Labs: Laboratory Results - last 24 hr 06/29/24 06/29/24 18:37 21:37 WBC 8.9 RBC 4.52 L Hgb 15.0 Hct 43.0 MCV 95.1 H MCH 33.2 H MCHC 34.9 RDW Std Deviation 42.7 RDW Coeff of Zoltan 12.2 Plt Count 197 MPV 9.3 Immature Gran % (Auto) 0.400 Neut % (Auto) 63.6 Lymph % (Auto) 27.0 [place] % (Auto) 5.9 Eos % (Auto) 2.4 Baso % (Auto) 0.7 Absolute Neuts (auto) 5.7 Absolute Lymphs (auto) 2.41 Nucleated RBC % 0 D-Dimer Quant (PE/DVT) 0.54 H* Sodium 135 L Potassium 3.6 Chloride 104 Carbon Dioxide 25.0 Anion Gap 6 BUN 11 Creatinine 1.17 Estim Creat Clear Calc 58.31 Est GFR (MDRD) Af Amer 78 Est GFR (MDRD) Non-Af 64 BUN/Creatinine Ratio 9.4 L Glucose 137 H Calcium 9.4 Troponin I High Sens 8 11 Radiography Chest X-Ray - ED: 2 View, Read by ED Physician, Read by Radiologist and No Acute Disease Diagnostic Testing: Clinical Impression(s) from Imaging Studies Chest X-Ray 06/29/24 20:17 IMPRESSION: No acute findings in the chest. Electronically Signed: Drew Salamanca, at 21:10 EST , [place] and lateral chest x-ray was obtained. There are 2 views. On my independent interpretation, lung vaca are clear. There is normal cardiac silhouette. Bony thorax is normal. There is no acute process noted. Radiologist also interpreted the x-ray and agrees. EKG Initial EKG: Attestation: I personally reviewed and interpreted this EKG as follows: Interpretation: Sinus Rhythm (95) and Non-Specific ST Changes Comments: EKG was obtained. On my independent interpretation, it showed a normal sinus rhythm with a rate of 95. [place] interval, QRS interval, and QTc intervals were all normal. There is left axis deviation at -26. There are nonspecific ST-T wave changes. Prior EKG tracings: available for review Prior: Unchanged (10/13/2022) Treatment and Re-Evaluation :: Patient was given aspirin. Patient was advised of his findings. Patient has a HEART score of 4. Patient had a recent stress test which was negative on 12/11/2023. Patient was instructed to follow-up with his primary care physician in 5 to 7 days. Patient was instructed to return if worse in any way. Patient understood and was agreeable with the plan. All questions were answered. Discharge Plan Triage Chief Complaint: Chest Pain ED Provider: Jean Ramirez Dx/Rx/DC Orders Clinical Impression: Chest pain, Hypertension Instructions: ED Chest Pain, Uncertain Cause Prescriptions: No Action hyoscyamine sulfate 0.125 MG Tablet 0.125 mg PO BID ProAir HFA 90 mcg/actuation HFA aerosol inhaler 1 puff INHALATION Q6H PRN (Reason: Sob &/Or Wheezing) buspirone 10 mg tablet 10 mg PO .COMPLEX Rx Instructions: 10 mg orally 3 times per day alternating with 4 times per day; atorvastatin 10 mg tablet 10 mg PO DAILY aspirin 81 mg tablet,delayed release (DR/EC) 81 mg PO DAILY cholecalciferol (vitamin D3) 125 mcg (5,000 unit) tablet 5,000 unit PO 6XW omega-3 fatty acids 500 mg capsule 1,000 mg PO BID Rx Instructions: 540 mg tuna oil diclofenac sodium 1 % gel 2 g TOPICAL ONCE PRN (Reason: OTHER) ibuprofen 200 mg capsule 200 mg PO Q6H PRN (Reason: Pain Or Fever) clobetasol 0.05 % cream 1 applic topical DAILY PRN (Reason: cream) losartan 50 mg tablet 100 mg PO DAILY montelukast [Singulair] 10 mg tablet 10 mg PO DAILY fluticasone propionate [Allergy Relief (fluticasone)] 50 mcg/actuation spray,suspension 1 spray intranasal DAILY PRN Rx Instructions: administer into each nostril fluticasone propionate [Flovent HFA] 110 mcg/actuation HFA aerosol inhaler 1 inh inhalation DAILY Patient Comments: INHALE 2 (TWO) puffs EVERY DAY zinc gluconate 30 mg tablet 30 mg PO DAILY cinnamon bark extract 500 mg tablet 1,000 mg PO BID tadalafil 5 mg tablet 5 mg PO DAILY PRN Patient Comments: TAKE 1 TABLET BY MOUTH EVERY DAY NEEDED guaifenesin [Mucinex] 600 mg tablet extended release 12hr 600 mg PO Q12H PRN amlodipine 5 mg tablet 5 mg PO QDAY mecobalamin (vitamin B12) 500 mcg tablet,chewable 500 mcg PO DAILY hydrocortisone acetate 25 MG suppository 25 mg [place] PRN PRN (Reason: Constipation) Primary Care Provider: Love Valencia Referrals: Love Valencia DO [Primary Care Provider] - 5-7 Days Print Language: Chinese Disposition Disposition: Home, Self Care
--- NOTE | 2024-06-29 19:20 | EKG12_ITS ---
Test Reason : CP Blood Pressure : */* mmHG Vent. Rate : 95 BPM Atrial Rate : 95 BPM P-R Int : 182 ms QRS Dur : 86 ms QT Int : 334 ms P-R-T Axes : 41 -26 -3 degrees QTcB Int : 419 ms Normal sinus rhythm Nonspecific ST abnormality Abnormal ECG Confirmed by REJI WALDRON MD ([id number]), scientific publications editor [employer] [facility] ([id number]) on 07/03/2024 9:58:29 AM Referred By: ART Confirmed By: REJI WALDRON MD
[2024-06-29] MEDS: Aspirin 81 MG TAB.CHEW 243 MG PO (19:28)
[2024-06-29 19:40] LABS: Absolute Lymphocyte Count 2.41 X10^3/uL (0.83-4.51); Absolute Neutrophil Count 5.7 X10^3/uL (2.0-7.7); Basophil# 0.06 X10^3/uL; Basophil% 0.7 % (0-1); Eosinophil# 0.21 X10^3/uL; Eosinophils% 2.4 % (0-5); Lymphocyte # 2.41 X10^3/ul (0.83-4.51); Mean Corp Hgb Conc 34.9 g/dL (32-36); Mean Corpuscular Hgb 33.2 pg (27.0-32.0); Mean Corpuscular Volume 95.1 fL (80-94); Mean Platelet Vol. 9.3 fl (6.2-12.0); Monocyte# 0.53 X10^3/uL; Monocyte% 5.9 % (0-10); NRBC Flagged by Analyzer 0 % (0-5); Neutrophil # 5.68 X10^3/uL (2.7-7.7); Neutrophil % 63.6 % (47-70); Platelet Count 197 K/mm3 (150-450); RBC Distribution Width CV 12.2 % (11.6-14.6); RBC Distribution Width SD 42.7 fl (35.1-43.9); Red Blood Count 4.52 M/mm3 (4.6-6.2); White Blood Count 8.9 K/mm3 (4.4-11.0)
[2024-06-29 20:01] LABS: D-Dimer Quantitative (DVT/PE) 0.54 FEU/ug/m (0.27-0.49)
[2024-06-29 20:14] LABS: Anion Gap 6 (5-15); BUN 11 mg/dL (7-18); BUN/Creat Ratio 9.4 RATIO (10-20); Calcium,Total 9.4 mg/dL (8.5-10.1); Chloride 104 mmol/L (98-107); Creatinine, Serum 1.17 mg/dL (0.70-1.30); EST Glomerular Filtration Rate 64 mL/min (>60); Est Glom Filt Rate - Afr Amer 78 mL/min (>60); Estimated Creatinine Clearance 58.31 ml/min; Glucose 137 mg/dL (74-106); Potassium 3.6 mmol/L (3.5-5.1); Sodium Level 135 mmol/L (136-145); Troponin-I HS (w/2H Reflex) 8 pg/mL (3.0-78.0)
--- NOTE | 2024-06-29 20:17 | RAD_ITS ---
EXAM: XR CHEST, 2 VIEWS CLINICAL INDICATION: Chest pain TECHNIQUE: Frontal and lateral views of the chest. COMPARISON: 10/13/2022 FINDINGS: LUNGS AND PLEURAL SPACES: No significant abnormality. No consolidation or edema. No pneumothorax. No effusion. HEART: No significant abnormality. Cardiac silhouette not enlarged. MEDIASTINUM: Central airways and mediastinal contour are unremarkable. BONES/JOINTS: Degenerative changes in the spine and shoulders. [place] right curvature of the lumbar spine. No acute fracture. SOFT TISSUES: No significant abnormality. VASCULATURE: Atherosclerosis. RAD/Chest PA and Lateral IMPRESSION: No acute findings in the chest. Electronically Signed: Drew Salamanca DO at 21:10 EST ,
[2024-06-29 21:34] LABS: Reflex Troponin-HS? (from REC) Y
[2024-06-29 22:19] LABS: Troponin-I HS 11 pg/mL (3.0-78.0)
--- NOTE | 2024-06-29 22:37 | ED.RN ---
This RN did not give nitroglycerin because the patient does not have any chest pain.
== END 2024-06-29 23:14 | disposition home or self-care (01) ==
PROVIDERS: Emergency Provider Emergency Medicine; PCP Internal Medicine; Visit Provider Emergency Medicine
DX: R07.9 Chest pain, unspecified (principal); I25.10 Atherosclerotic heart disease of native coronary artery without angina pectoris; I10 Essential (primary) hypertension; E78.5 Hyperlipidemia, unspecified; Z87.891 Personal history of nicotine dependence; Z79.899 Other long term (current) drug therapy; Z79.82 Long term (current) use of aspirin; J45.909 Unspecified asthma, uncomplicated; Z79.51 Long term (current) use of inhaled steroids
CPT/HCPCS: 71046; 80048; 84484; 85025; 85379; 93005; 99283; A4216

== ENCOUNTER → 2024-08-13 | Outpatient (CLI) | payer MEDICARE, OTHER, SELFPAY ==
[2024-08-13 17:38] LABS: PSA,Total- Diagnostic 4.13 ng/mL (0.0-4.0)
== END | disposition home or self-care (01) ==
PROVIDERS: PCP Internal Medicine; Referring Provider Urology; Visit Provider Urology
DX: N40.1 Benign prostatic hyperplasia with lower urinary tract symptoms (principal)
CPT/HCPCS: 36415; 84153

== ENCOUNTER → 2024-08-31 | Outpatient (CLI) | payer MEDICARE, OTHER, SELFPAY ==
--- NOTE | 2024-08-31 14:00 | CT_ITS ---
PROCEDURE: CTA CHEST W/WO CONTRAST REASON FOR EXAM: Evaluation of the aortic aneurysm. TECHNIQUE: CTA imaging of the chest with intravenous contrast. 3D reconstructions. CONTRAST: 100 cc of Isovue 300. COMPARISON: Comparison is made with prior study dated July 26, 2023. FINDINGS: Hardware: None. Lymph nodes: No mediastinal hilar or axillary lymphadenopathy. Heart: Normal heart size. No pericardial effusion. Coronary artery calcification RV/LV Diameter Ratio: N/A Thoracic Aorta: Stable dilatation of the root of the ascending thoracic aorta with a transverse dimension of 46 mm. Pulmonary Vessels: No evidence of acute pulmonary emboli through the major subsegmental branches. Most Proximal Level of Embolus (if embolus present): N/A Lungs and Airways: Stable mild scarring in the posterior aspect of the right lower lobe. Mild scarring at the left lung base as well. Pleura: No pleural effusion. No pneumothorax. Upper Abdomen: Visualized portions of the upper abdominal viscera are unremarkable. Bones: Degenerative changes of the thoracic spine. CT/CTA Chest W/WO Contrast IMPRESSION: Stable examination. One or more dose reduction techniques were used (e.g., Automated exposure contr ol, adjustment of the mA and/or kV according to patient size, use of iterative reconstruction technique). Reading Location: [place]
== END | disposition home or self-care (01) ==
LOC: CT 13:51
PROVIDERS: PCP Internal Medicine; Referring Provider Nurse Practitioner Family; Visit Provider Nurse Practitioner Family
DX: I71.20 Thoracic aortic aneurysm, without rupture, unspecified (principal)
CPT/HCPCS: 71275; Q9967

== ENCOUNTER 2025-03-07 16:41 | Emergency (ER) | payer MEDICARE, OTHER, SELFPAY ==
[2025-03-07 16:42] VITALS: BP 123/76; PULSE 70; RESP 18; TEMP 37.2; O2SAT 99; BMI 30.2
--- NOTE | 2025-03-07 16:46 | EKG12_ITS ---
Test Reason : CP Blood Pressure : */* mmHG Vent. Rate : 65 BPM Atrial Rate : 65 BPM P-R Int : 196 ms QRS Dur : 90 ms QT Int : 378 ms P-R-T Axes : 34 -21 13 degrees QTcB Int : 393 ms Normal sinus rhythm Normal ECG Confirmed by VANITA CARTAGENA, REJI ([id number]), mapping editor [facility] [facility] ([id number]) on 03/08/2025 1:08:37 PM Referred By: Confirmed By: REJI WALDRON MD
[2025-03-07 16:59] LABS: Hematocrit 42.9 % (40-54); Hemoglobin 15.0 g/dL (13.0-16.5); Immature Granulocytes Count 0.010 X10^3/uL (0.0-0.0); Mean Corp Hgb Conc 35.0 g/dL (32-36); Mean Corpuscular Volume 94.9 fL (80-94); Mean Platelet Vol. 8.4 fl (6.2-12.0); NRBC Flagged by Analyzer 0 % (0-5); Platelet Count 183 K/mm3 (150-450); RBC Distribution Width CV 12.1 % (11.6-14.6); RBC Distribution Width SD 42.5 fl (35.1-43.9); Red Blood Count 4.52 M/mm3 (4.6-6.2); White Blood Count 7.2 K/mm3 (4.4-11.0)
--- NOTE | 2025-03-07 17:12 | CT_ITS ---
PROCEDURE: CTA CHEST W/WO CONTRAST 03/07/2025 REASON FOR EXAM: PAIN TECHNIQUE: CTA CHEST W/WO CONTRAST Multiplanar Sagittal and Coronal images were obtained. CONTRAST: Isovue 370 VOLUME: 100 mL One or more dose reduction techniques were used (e.g., Automated exposure control, adjustment of the mA and/or kV according to patient size, use of iterative reconstruction technique). RADIATION DOSE SUMMARY: CTDlvol: 19.0 and 14.84 mGy DLP: 578.90 mGycm COMPARISON: [address] August 31, 2019 # of known CTs in the past 12 months: 1 # of known Cardiac Nuclear Medicine Studies in the past 12 months: 0 FINDINGS: Thoracic Aorta: Ectatic measuring 4.5 cm diameter at the level of the main pulmonary artery. Heart: Upper limits normal in size. [id number] calcific change in the left anterior descending coronary artery Pulmonary Vessels: No pulmonary embolism. Normal branching Hardware: None. Lymph nodes: No significant adenopathy. Lungs and Airways: Airways are clear. Mm calcified nodule in the right upper lobe Pleura: No effusions. No pneumothorax. Upper Abdomen: No acute process in the upper abdomen on limited included images. Small hiatal hernia. Large lumbar spine bridging osteophytes thoracic spine unremarkable. No aggressive bony process identified. CT/CTA Chest W/WO Contrast IMPRESSION: No pulmonary embolism. No other acute process. Reading [facility]
[2025-03-07 17:18] LABS: Anion Gap 11 (5-15); BUN 10 mg/dL (4-19); BUN/Creat Ratio 10.0 RATIO (10-20); Calcium,Total 9.4 mg/dL (7.6-11.0); Carbon Dioxide 22.9 mmol/L (21.0-32.0); Chloride 102 mmol/L (98-108); Estimated Creatinine Clearance 71.41 ml/min (50-250); Glucose 96 mg/dL (70-99); Potassium 3.9 mmol/L (3.3-5.1); Troponin T High Sensitivity 15 ng/L (<=22)
[2025-03-07 17:41] VITALS: BP 127/79; PULSE 60; RESP 16; O2SAT 94
[2025-03-07 18:00] VITALS: BP 144/89; PULSE 62; RESP 18; O2SAT 93
--- NOTE | 2025-03-07 18:06 | ED.VIS.CHEST ---
HPI History of Present Illness Chief Complaint: Chest Pain Narrative Narrative: 80-year-old male past medical history of stable thoracic aneurysm being followed by [facility] presents with chest pain that began yesterday evening. States it may have began around 8:00 in the evening. Was more of a discomfort across his chest. Started on the left and went across his entire chest. It lasted a few hours. He went to bed and when he woke up this morning, it had resolved. This was around 6:00 in the morning when he awoke. However, he began having symptoms again at 830. States that his neck feels discomfort and is mainly in the middle of his chest as it was on the left side previously. He denies any tearing sensation in his back, no nausea or vomiting, no diaphoresis, no exacerbating or alleviating factors. [facility] Medical History Thoracic aortic aneurysm without rupture Asthma History of DVT (deep vein thrombosis) Paroxysmal atrial tachycardia Hyperlipemia Non-rheumatic mitral regurgitation Nonrheumatic mitral (valve) prolapse Atherosclerotic heart disease of [place] coronary artery without angina pectoris Home Medications ?Medication ?Instructions ?Recorded ?Last Taken ?Type aspirin 81 mg tablet,delayed 81 mg PO DAILY 04/28/18 04/27/21 History release atorvastatin 10 mg tablet 10 mg PO DAILY 04/28/18 04/27/21 History albuterol sulfate 90 mcg/actuation 1 puff inhalation Q6H PRN Sob &/Or 04/30/18 Unknown History aerosol inhaler (ProAir HFA) Wheezing hyoscyamine sulfate 0.125 mg tablet 0.125 mg PO BID 04/30/18 04/27/21 History diclofenac sodium 1 % topical gel 2 g topical ONCE PRN OTHER 02/12/19 Unknown History ibuprofen 200 mg capsule 200 mg PO Q6H PRN Pain Or Fever 02/12/19 Unknown History hydrocortisone acetate 25 mg 25 mg UT PRN PRN Constipation 11/22/19 Unknown History rectal suppository clobetasol 0.05 % topical cream 1 applic topical DAILY PRN cream 11/23/20 Unknown History montelukast 10 mg tablet 10 mg PO DAILY 11/13/21 Unknown History (Singulair) buspirone 10 mg tablet 10 mg PO .COMPLEX 07/01/23 Unknown History cholecalciferol (vitamin D3) 125 5,000 unit PO 6XW 07/01/23 Unknown History mcg (5,000 unit) tablet cinnamon bark extract 500 mg tablet 1,000 mg PO BID 07/01/23 Unknown History fluticasone propionate 110 1 inh inhalation DAILY 07/01/23 Unknown History mcg/actuation HFA aerosol inhaler (Flovent HFA) fluticasone propionate 50 1 spray intranasal DAILY PRN 07/01/23 Unknown History mcg/actuation nasal spray,suspension (Allergy Relief (fluticasone)) guaifenesin 600 mg tablet, 600 mg PO Q12H PRN 07/01/23 Unknown History extended release 12 hr (Mucinex) omega-3 fatty acids 500 mg capsule 1,000 mg PO BID 07/01/23 Unknown History tadalafil 5 mg tablet 5 mg PO DAILY PRN 07/01/23 Unknown History zinc gluconate 30 mg tablet 30 mg PO DAILY 07/01/23 Unknown History amlodipine 5 mg tablet 5 mg PO QDAY 04/07/24 Unknown History losartan 50 mg tablet 100 mg PO DAILY 04/07/24 Unknown History mecobalamin (vitamin B12) 500 mcg 500 mcg PO DAILY 04/07/24 Unknown History chewable tablet Allergy/AdvReac Type Severity Reaction Status Date / Time azithromycin (From Zithromax AdvReac Diarrhea Verified 03/07/25 16:42 Z-Nithin) erythromycin base AdvReac Diarrhea Verified 03/07/25 16:42 (Erythromycin Base) Penicillins AdvReac Diarrhea Verified 03/07/25 16:42 Family History Mother Hypertension Surgical History History of back surgery History of Achilles tendon repair History of arthroscopic knee surgery Social History Smoking Status: Former smoker how long ago did patient quit smokin years ago alcohol intake: current alcohol intake frequency: 0-2 drinks per day Alcohol type: beer and wine substance use type: does not use caffeine: Yes Type: coffee Number of servings: 1 ROS ROS ED ROS Narrative Review of systems positive for left-sided chest pain radiating across entire chest. No fevers or chills, no cough, no nausea or vomiting, no diaphoresis. Now has midsternal chest pain with questionable radiation to neck. No leg swelling, no exacerbating or alleviating factors. EXAM Physical Exam Narrative Exam Narrative: Afebrile. Vital signs noted. Nontoxic-appearing. Cardiovascular examination reveals regular rate and rhythm. Lungs are clear to auscultation bilaterally. The abdomen is soft and nontender with positive bowel sounds. No guarding or rebound. Neurological examination nonfocal, nonlateralizing. Moves all extremities. No pedal edema appreciated. Const Vital Signs: 03/07/25 16:42 03/07/25 17:41 03/07/25 17:49 Temperature 98.9 F Temperature Source Oral Pulse Rate 70 60 Respiratory Rate 18 16 Respiratory Effort Blood Pressure 123/76 H 127/79 H Blood Pressure Mean 91 95 Pulse Ox 99 94 Oxygen Delivery Method Room Air Room Air Room Air 03/07/25 17:50 03/07/25 18:00 03/07/25 19:04 Temperature Temperature Source Pulse Rate 62 63 Respiratory Rate 18 13 Respiratory Effort Normal Blood Pressure 144/89 H 142/83 H Blood Pressure Mean 107 102 Pulse Ox 93 93 Oxygen Delivery Method Room Air 03/07/25 20:00 Temperature Temperature Source Pulse Rate 65 Respiratory Rate 14 Respiratory Effort Blood Pressure 143/89 H Blood Pressure Mean 107 Pulse Ox 92 Oxygen Delivery Method Room Air MDM MDM MDM Narrative Medical decision making narrative: The differential diagnosis includes but not limited to ACS versus aortic dissection versus thoracic aneurysm rupture versus pulmonary embolism versus pneumonia versus pneumothorax. History and physical does not support the latter 2 diagnoses. Comprehensive workup was pursued. I did review his prior records. From his cardiology visits, his aneurysm ranges from 4.5 to 4.6 cm and has been stable. He is had left-sided chest pain in the past. EKG was obtained and interpreted by myself independently as normal sinus rhythm at 65 bpm without ectopy or acute ST changes. No STEMI. Review of his laboratory work shows normal white count 7.2 with hemoglobin normal at 15.0, hematocrit 42.9, platelet count normal at 183. Sodium normal at 136 with potassium 3.9, glucose normal at 96. Initial high-sensitivity troponin is 15. Instead of chest x-ray, given his history of thoracic aneurysm, I do feel CTA is indicated as he states he usually gets CTAs every July so it has been approximately 8 months since his last evaluation of his aneurysm. I reviewed the radiology report of the CTA and his aneurysm appears stable at 4.5. His repeat troponin is 14. Repeat examination shows him resting comfortably on the cot reading a book. He feels improved. 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 Return instructions to the emergency department were reviewed. Disposition is discharged home in stable condition. History & Record Review Discussion w/independent historian: Patient Additional record(s) reviewed:: Prior outpatient record and Prior ED visit Lab Data Attestation: I reviewed the patient's lab results. Labs: Laboratory Results - last 24 hr 03/07/25 03/07/25 16:50 19:00 WBC 7.2 RBC 4.52 L Hgb 15.0 Hct 42.9 MCV 94.9 H MCH 33.2 H MCHC 35.0 RDW Std Deviation 42.5 RDW Coeff of Zoltan 12.1 Plt Count 183 MPV 8.4 Immature Gran % (Auto) 0.100 Neut % (Auto) 57.1 Lymph % (Auto) 30.4 [place] % (Auto) 8.1 Eos % (Auto) 3.5 Baso % (Auto) 0.8 Absolute Neuts (auto) 4.1 Absolute Lymphs (auto) 2.20 Nucleated RBC % 0 Sodium 136 Potassium 3.9 Chloride 102 Carbon Dioxide 22.9 Anion Gap 11 BUN 10 Creatinine 0.96 Estim Creat Clear Calc 71.41 Est GFR (MDRD) Non-Af 81 BUN/Creatinine Ratio 10.0 Glucose 96 Calcium 9.4 Troponin T High Sens 15 Troponin T Hi Sens 2 Hr 14 Radiography Diagnostic Testing: Clinical Impression(s) from Imaging Studies Chest CTA 03/07/25 17:12 IMPRESSION: No pulmonary embolism. No other acute process. Reading Location[facility] Discharge Plan Triage Chief Complaint: Chest Pain ED Provider: Román Ko Dx/Rx/DC Orders Clinical Impression: Chest pain, Thoracic aortic aneurysm without rupture Instructions: ED Chest Pain, Uncertain Cause Prescriptions: No Action hyoscyamine sulfate 0.125 MG Tablet 0.125 mg PO BID ProAir HFA 90 mcg/actuation HFA aerosol inhaler 1 puff INHALATION Q6H PRN (Reason: Sob &/Or Wheezing) buspirone 10 mg tablet 10 mg PO .COMPLEX Rx Instructions: 10 mg orally 3 times per day alternating with 4 times per day; atorvastatin 10 mg tablet 10 mg PO DAILY aspirin 81 mg tablet,delayed release (DR/EC) 81 mg PO DAILY cholecalciferol (vitamin D3) 125 mcg (5,000 unit) tablet 5,000 unit PO 6XW omega-3 fatty acids 500 mg capsule 1,000 mg PO BID Rx Instructions: 540 mg tuna oil diclofenac sodium 1 % gel 2 g TOPICAL ONCE PRN (Reason: OTHER) ibuprofen 200 mg capsule 200 mg PO Q6H PRN (Reason: Pain Or Fever) clobetasol 0.05 % cream 1 applic topical DAILY PRN (Reason: cream) losartan 50 mg tablet 100 mg PO DAILY montelukast [Singulair] 10 mg tablet 10 mg PO DAILY fluticasone propionate [Allergy Relief (fluticasone)] 50 mcg/actuation spray,suspension 1 spray intranasal DAILY PRN Rx Instructions: administer into each nostril fluticasone propionate [Flovent HFA] 110 mcg/actuation HFA aerosol inhaler 1 inh inhalation DAILY Patient Comments: INHALE 2 (TWO) puffs EVERY DAY zinc gluconate 30 mg tablet 30 mg PO DAILY cinnamon bark extract 500 mg tablet 1,000 mg PO BID tadalafil 5 mg tablet 5 mg PO DAILY PRN Patient Comments: TAKE 1 TABLET BY MOUTH EVERY DAY NEEDED guaifenesin [Mucinex] 600 mg tablet extended release 12hr 600 mg PO Q12H PRN amlodipine 5 mg tablet 5 mg PO QDAY mecobalamin (vitamin B12) 500 mcg tablet,chewable 500 mcg PO DAILY hydrocortisone acetate 25 MG suppository 25 mg UT PRN PRN (Reason: Constipation) Primary Care Provider: Love Valencia Referrals: Love Valencia DO [Primary Care Provider] - 3-5 Days Activity Restrictions/Additional Instructions: 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 Return with increased pain, new or worsening symptoms. Your cardiac enzymes did not indicate that you are having ischemic damage today. Additionally the CT of your chest showed your aneurysm to be stable. Print Language: Mohawk Disposition Disposition: Home, Self Care
[2025-03-07 19:04] VITALS: BP 142/83; PULSE 63; RESP 13; O2SAT 93
[2025-03-07 20:00] VITALS: BP 143/89; PULSE 65; RESP 14; O2SAT 92
[2025-03-07 20:12] LABS: Troponin T High Sens 2 HR 14 ng/L (<=22)
[2025-03-07 20:26] VITALS: BP 150/90; PULSE 64; RESP 15; TEMP 37.1; O2SAT 94
== END 2025-03-07 20:43 | disposition home or self-care (01) ==
PROVIDERS: Emergency Provider Emergency Medicine; PCP Internal Medicine; Visit Provider Emergency Medicine
DX: R07.9 Chest pain, unspecified (principal); I71.20 Thoracic aortic aneurysm, without rupture, unspecified; Z87.891 Personal history of nicotine dependence; I25.10 Atherosclerotic heart disease of native coronary artery without angina pectoris; E78.5 Hyperlipidemia, unspecified; Z79.899 Other long term (current) drug therapy; J45.909 Unspecified asthma, uncomplicated; Z79.51 Long term (current) use of inhaled steroids
CPT/HCPCS: 71275; 80048; 84484; 85025; 93005; 99284; Q9967; A4216

== ENCOUNTER → 2025-03-09 | Outpatient (CLI) | payer MEDICARE, OTHER, SELFPAY ==
[2025-03-09 12:32] LABS: Hematocrit 43.2 % (40-54); Hemoglobin 15.1 g/dL (13.0-16.5); Immature Granulocytes Count 0.020 X10^3/uL (0.0-0.0); Mean Corp Hgb Conc 35.0 g/dL (32-36); Mean Corpuscular Volume 94.9 fL (80-94); Mean Platelet Vol. 9.2 fl (6.2-12.0); NRBC Flagged by Analyzer 0 % (0-5); Platelet Count 187 K/mm3 (150-450); RBC Distribution Width CV 11.9 % (11.6-14.6); RBC Distribution Width SD 41.9 fl (35.1-43.9); Red Blood Count 4.55 M/mm3 (4.6-6.2); White Blood Count 5.4 K/mm3 (4.4-11.0)
[2025-03-09 12:47] LABS: Creatinine, Urine (random) 125.00 mg/dL (39.00-259.00); Microalbumin,Random Urine < 12.0 mg/L (<20 mg/L)
[2025-03-09 13:19] LABS: AST(SGOT) 25 U/L (<=37); Alanine Aminotransfer ALT/SGPT 26 U/L (<=46); Albumin, Serum 4.3 g/dL (3.4-4.8); Alkaline Phosphatase 92 U/L (40-129); Anion Gap 12 (5-15); BUN 12 mg/dL (4-19); BUN/Creat Ratio 12.7 RATIO (10-20); Calcium,Total 9.4 mg/dL (7.6-11.0); Carbon Dioxide 22.1 mmol/L (21.0-32.0); Chloride 104 mmol/L (98-108); Cholesterol 127 mg/dL (<=200); Globulin 2.4 g/dL (2.2-4.2); Glucose 110 mg/dL (70-99); Low Density Lipoprotein Calc. 59 mg/dL; PSA,Total- Diagnostic 3.08 ng/mL (0.00-4.00); Potassium 4.1 mmol/L (3.3-5.1); Triglycerides 83 mg/dL; Very Low Density Lipoprotein 17 mg/dL (5-40); Vitamin D,25 Hydroxy 70.5 ng/mL (30-100); cholesterol:hdl ratio screen 2.45
== END | disposition home or self-care (01) ==
LOC: MTLAB 10:23
PROVIDERS: PCP Internal Medicine; Referring Provider Internal Medicine; Visit Provider Internal Medicine
DX: R97.20 Elevated prostate specific antigen [PSA] (principal); R73.01 Impaired fasting glucose; I10 Essential (primary) hypertension; E78.49 Other hyperlipidemia; E55.9 Vitamin D deficiency, unspecified
CPT/HCPCS: 36415; 80053; 80061; 82043; 82306; 82570; 83036; 84153; 84402; 85025

== ENCOUNTER → 2025-05-11 | Outpatient (CLI) | payer MEDICARE, OTHER, SELFPAY ==
[2025-05-11 14:37] LABS: Mucous, Urine 0 SEEN /hpf (<or=2+); Red Blood Cells-Urine 0 SEEN /hpf (0-5); Squamous Epithelial Cells - UA 0 SEEN /hpf (0-5)
[2025-05-11 14:47] LABS: Color, Urine Yellow (Yellow); Glucose, Dipstick Normal (Normal); Hematocrit 47.1 % (40-54); Hemoglobin 16.3 g/dL (13.0-16.5); Immature Granulocytes Count 0.010 X10^3/uL (0.0-0.0); Ketone-Dipstick Negative (Negative); Leukocyte Esterase-Dipstick 25 /ul (Negative); Mean Corp Hgb Conc 34.6 g/dL (32-36); Mean Corpuscular Volume 97.9 fL (80-94); Mean Platelet Vol. 9.5 fl (6.2-12.0); NRBC Flagged by Analyzer 0 % (0-5); Nitrite-Dipstick Negative (Negative); Occult Blood-Urine 25 /ul (Negative); Platelet Count 200 K/mm3 (150-450); Protein-Dipstick 15 mg/dl (Negative); RBC Distribution Width CV 12.9 % (11.6-14.6); RBC Distribution Width SD 46.2 fl (35.1-43.9); Red Blood Count 4.81 M/mm3 (4.6-6.2); Specific Gravity, Urine 1.015 (1.002-1.030); Urine Bilirubin Dipstick Negative (Negative); White Blood Count 5.7 K/mm3 (4.4-11.0)
[2025-05-11 15:11] LABS: AST(SGOT) 25 U/L (<=37); Alanine Aminotransfer ALT/SGPT 37 U/L (<=46); Albumin, Serum 4.8 g/dL (3.4-4.8); Alkaline Phosphatase 104 U/L (40-129); Anion Gap 12 (5-15); BUN 12 mg/dL (4-19); BUN/Creat Ratio 12.2 RATIO (10-20); Calcium,Total 10.0 mg/dL (7.6-11.0); Carbon Dioxide 23.0 mmol/L (21.0-32.0); Chloride 103 mmol/L (98-108); Globulin 2.4 g/dL (2.2-4.2); Glucose 104 mg/dL (70-99); Potassium 4.4 mmol/L (3.3-5.1)
[2025-05-11 15:32] LABS: Creatinine, Urine (random) 162.00 mg/dL (39.00-259.00); Microalbumin,Random Urine < 12.0 mg/L (<20 mg/L)
== END | disposition home or self-care (01) ==
LOC: LABSPEC 13:28
PROVIDERS: PCP Internal Medicine; Referring Provider Internal Medicine; Visit Provider Internal Medicine
DX: R73.01 Impaired fasting glucose (principal)
CPT/HCPCS: 80053; 81001; 82043; 82570; 85025; 87086; 87088

== ENCOUNTER → 2025-05-27 | Outpatient (CLI) | payer MEDICARE, OTHER, SELFPAY ==
[2025-05-27 14:23] LABS: Color, Urine Straw (Yellow); Glucose, Dipstick Normal (Normal); Ketone-Dipstick Negative (Negative); Leukocyte Esterase-Dipstick Negative /ul (Negative); Nitrite-Dipstick Negative (Negative); Occult Blood-Urine Negative /ul (Negative); Protein-Dipstick Negative (Negative); Specific Gravity, Urine 1.015 (1.002-1.030); Urine Bilirubin Dipstick Negative (Negative)
== END | disposition home or self-care (01) ==
LOC: LABSPEC 12:37
PROVIDERS: PCP Internal Medicine; Referring Provider Internal Medicine; Visit Provider Internal Medicine
DX: R82.90 Unspecified abnormal findings in urine (principal)
CPT/HCPCS: 81002; 87086

== ENCOUNTER → 2025-06-14 | Outpatient (CLI) | payer MEDICARE, OTHER, SELFPAY ==
--- NOTE | 2025-06-14 09:53 | RAD_ITS ---
PROCEDURE: ESOPHAGUS DUAL CONTRAST 06/14/2025 REASON FOR EXAM: BARIUM ESOPHAGRAM; WITH 12MM BARRELL TECHNIQUE: ESOPHAGUS DUAL CONTRAST FLUOROSCOPIC TIME: 42 seconds. Radiation dose: 24.7 mGy. FLUOROGRAPHIC IMAGES: 16 COMPARISON: None FINDINGS: The patient ingested barium. Fluoroscopic imaging of the esophagus was performed. No evidence of esophageal obstruction. No evidence of gastroesophageal reflux. No mass lesion is seen. The patient ingested a 12 mm tablet the barium. The tablet is stuck at the gastroesophageal junction. Fluoroscopic correlation recommended. RAD/Esophagus Dual Contrast IMPRESSION: The ingested a 12 mm tablet the barium is trapped at the gastroesophageal junct ion. Endoscopic correlation recommended. Reading Location: [facility]
== END | disposition home or self-care (01) ==
LOC: RAD 09:43
PROVIDERS: PCP Internal Medicine; Referring Provider Internal Medicine; Visit Provider Internal Medicine
DX: R13.10 Dysphagia, unspecified (principal)
CPT/HCPCS: 74221

== ENCOUNTER → 2025-06-15 | Outpatient (CLI) | payer MEDICARE, OTHER, SELFPAY ==
--- NOTE | 2025-06-15 08:21 | US_ITS ---
PROCEDURE: ABD LIMITED W/ ELASTOGRAPHY REASON FOR EXAM: ABD LIMITED W/ ELASTOG COMPARISON: 30 October 2023. TECHNIQUE: Procedure Code: [id number] Modality: US Procedure: ABD LIMITED W/ ELASTOGRAPHY Right upper quadrant abdominal ultrasound. [facility] ElastQ Imaging shear wave elastography for non-invasive assessment of liver tissue stiffness. [employer] EPIQ Elite. FINDINGS: Measurements: Right kidney: 10 x 6.5 x 5.8 cm. Gallbladder wall: 1.6 mm. CBD: 7.9 mm. Liver length: 14.8 cm. Pancreas: The visualized portions of the pancreas are normal. Liver: Increased echogenicity and coarsened echotexture. There are no liver lesions identified. Gallbladder: The gallbladder is unremarkable, without gallstones, wall thickening, or pericholecystic fluid. Negative sonographic Harvey sign reported. No dilated intra-or extrahepatic biliary ducts. Portal vein demonstrates normal hepatopetal flow. Right kidney: Simple cyst measuring 1.4 x 1.3 x 1.2 cm. No evidence of mass, echogenic calculi, or hydronephrosis. The cortex is normal in echogenicity and thickness. The upper abdominal IVC and aorta are grossly normal in appearance. No ascites. Elastography: EQI Med: 6 kPa EQI Med Renny: 5.3 m/s IQR/Med: 5.3 %* US/ABD Limited w/ Elastography IMPRESSION: 1. 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 2. Hepatic steatosis. 3. 1.4 cm simple right renal cyst. No follow up needed. Reference Values: SRU <1.37 m/s (5.7kPa): No to mild fibrosis 1.37 m/s - 2.2 m/s: Moderate to severe fibrosis >2.2 m/s (15kPa): Significant fibrosis / cirrhosis METAVIR Score F2 or higher: 1.34 m/s (5.7kPa) F3 or higher: 1.55 m/s (7.3kPa) F4: 1.80 m/s (10kPa) * If the IQR/Med is >30%, the variance in the measurements is a large and the a ccuracy of the measurement may be in question. Reading Location: [id number]
--- NOTE | 2025-06-15 08:21 | US_ITS ---
EXAM: Left axilla soft tissue ultrasound CLINICAL HISTORY: Swelling, tender to touch COMPARISON: None TECHNIQUE: Real-time superficial soft tissue ultrasound of the left axilla FINDINGS: Left axillary area of concern shows a lymph node measuring 0.8 x 0.5 x 0.7 cm. Heterogenous area measuring 3.8 x 3.6 x 2.1 cm is noted. US/Axilla - Left IMPRESSION: Left axillary lymph node. Heterogenous area in the left axilla, findings are nonspecific by ultrasoundkay evaluation is advised Reading Location: [facility]
== END | disposition home or self-care (01) ==
LOC: US 08:20
PROVIDERS: PCP Internal Medicine; Referring Provider Internal Medicine; Visit Provider Internal Medicine
DX: K76.0 Fatty (change of) liver, not elsewhere classified (principal)
CPT/HCPCS: 76705; 76882; 76981